=== PATIENT | male | born 1970 | race Caucasian/White ===

== ENCOUNTER 2021-01-29 16:18 | Emergency (ER) | payer OTHER, SELFPAY ==
--- NOTE | ~2021-01-29 | XR_ITS ---
EXAMINATION: XR SHOULDER, LEFT CLINICAL INFORMATION: Left shoulder pain status post injury COMPARISON: None TECHNIQUE: Three views of the left shoulder. FINDINGS: The bones and soft tissues are normal. No fracture. Glenohumeral and acromioclavicular alignment is anatomic with normal joint space. No abnormal soft tissue calcifications. XR/XR shoulder LT min 2V IMPRESSION: Normal left shoulder.
[2021-01-29 16:29] VITALS: BP 128/83; PULSE 86; RESP 18; TEMP 36.7; O2SAT 97; BMI 29.4
--- NOTE | 2021-01-29 16:59 | ED.EXTPRO ---
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 He immediately had pain in the left shoulder. No numbness or tingling. No weakness. Related Data Allergies Allergy/AdvReac Type Severity Reaction Status Date / Time egg [EGGS] Allergy Unknown SNEEZING Verified 01/29/21 17:26 N.K.D.A. Allergy Unknown Unknown Verified 01/29/21 17:26 Review of Systems Review of Systems: Yes all other systems are reviewed and are negative Constitutional: Constitutional: Reports no additional constitutional complaints, Denies body ache(s), Denies chills, Denies fever(s), Denies headache(s) and Denies weakness Eyes: Eyes: Reports no additional eye complaints and Denies change in vision ENT: Reports system reviewed and no additional complaints, except as documented, Denies dizziness, Denies headache(s), Denies nasal congestion, Denies nasal discharge and Denies neck pain Cardiovascular: Cardiovascular: Reports no additional cardiovascular complaints, Denies chest pain, Denies leg edema and Denies dyspnea Respiratory: Respiratory: Reports no additional respiratory complaints, Denies cough and Denies dyspnea Gastrointestinal: Gastrointestinal: Reports no additional gastrointestinal complaints, Denies abdominal pain, Denies diarrhea, Denies nausea and Denies vomiting Genitourinary: Genitourinary: Denies urinary incontinence Musculoskeletal: Musculoskeletal: Reports no additional musculoskeletal complaints, Denies back pain, Reports arthralgias, Denies joint swelling, Reports limited range of motion, Denies neck pain, Denies numbness and Denies tingling Integumentary/Breasts: Skin/Breast: Reports system reviewed and no additional complaints, except as docu and Denies rash Neurologic: Reports system reviewed and no additional complaints, except as documented, Denies Abnormal speech present, Denies dizziness, Denies headache(s), Denies numbness, Denies tingling and Denies weakness PMF Past Medical History Attestation statement: The following information was validated with the patient. Source: old records reviewed and nursing notes reviewed Medical History No known health problems Social History Social History Advance Directives: Yes Advance Directives Information Provided: No Advance Directives on File: No Physical Exam Vital Signs: Vital Signs: Last Vital Signs Temp 98.0 F 01/29/21 16:29 Pulse 86 01/29/21 16:29 Resp 18 01/29/21 16:29 BP 128/83 01/29/21 16:29 Pulse Ox 97 01/29/21 16:29 Body Mass Index 29.4 Const: General: cooperative, healthy appearing, comfortable and no acute distress Orientation/consciousness: patient oriented x3 Limitations: no limitations HENMT: Head: Yes normal to inspection Ears: hearing grossly normal bilaterally General nose exam: Normal external nose present Face and sinus: Yes normal facial exam Mouth: Normal oral and palatal mucosa present Throat: Yes posterior oropharynx normal Eyes: General: appearance normal, both eyes and all related structures Pupils: Equal, round and reactive pupils present Neck: Neck: Yes normal visual inspection Chest: Chest palpation & inspection: normal inspection of the chest Resp: Effort & Inspection: normal respiratory effort Auscultation: clear to auscultation bilaterally Cardio: Rate: regular rate Rhythm: regular rhythm Peripheral pulses: Peripheral pulses 2+ throughout GI: Inspection: Yes normal to inspection Palpation (GI): Soft to palpation and nontender Auscultation: normal bowel sounds Back/Spine/Pelvis: Thoracic/Lumbar Spine: thoracic and lumbar spine normal to inspection Skin: General skin exam: no rashes or lesions noted Neuro: General: patient oriented x3, no focal motor deficits and normal sensation to monofilament Cranial nerves: Yes Equal, round and reactive pupils present Cognition (Neuro): normal cognition Speech: No Abnormal speech present Gait exam (Neuro): Normal gait present Motor exam (neuro): 5/5 motor strength present throughout Extrem: Other: Tenderness over the anterior left shoulder at the AC joint. There is also tenderness over the posterior lower left shoulder. Pain is worsened with abduction. No paresthesias. Neurovascular intact distally. General: Yes normal to inspection Course Course Course Narrative: 50-year-old male here with left shoulder pain after hyperextending it at work. Will need x-rays. 1744-x-ray show no acute finding. Based on clinical exam concern for AC joint separation versus rotator cuff strain. Recommended supportive care at home with ice, elevation and anti-inflammatory medicines. Will refer to work connection for repeat evaluation this week prior to return to work. Reviewed worrisome signs and symptoms and when to return to the emergency department. Comfortable discharge home. MDM - Extremity (Nontraumatic) Medical Records Attestation: I reviewed the patient's medical records. Lab Data Attestation: I reviewed the patient's lab results. Imaging Data left shoulder xray: Attestation: I personally reviewed and interpreted this imaging study as follows: Radiologist's impression: EXAMINATION: XR SHOULDER, LEFT CLINICAL INFORMATION: Left shoulder pain status post injury COMPARISON: None TECHNIQUE: Three views of the left shoulder. FINDINGS: The bones and soft tissues are normal. No fracture. Glenohumeral and acromioclavicular alignment is anatomic with normal joint space. No abnormal soft tissue calcifications. XR/XR shoulder LT min 2V IMPRESSION: Normal left shoulder. Discharge Plan Discharge Clinical Impression: Left shoulder strain Qualifiers: Encounter type: initial encounter Qualified Code(s): S46.912A - Strain of unspecified muscle, fascia and tendon at shoulder and upper arm level, left arm, initial encounter Patient Disposition: Home, Self-Care Instructions: Rotator Cuff Injury (ED), Rotator Cuff Injury Exercises (DC) Additional Instructions: Ice to the area Gentle stretching No heavy lifting Follow-up with work connection up for [id number] Stand Alone Forms: Work/School Release Interventions: ED Discharge Assessment Last Done: 01/29/21 17:34 Discharge Date/Time: 01/29/21 17:38
[2021-01-29] MEDS: Ketorolac Tromethamine 60 MG/2 ML VIAL IM (17:27)
== END 2021-01-29 17:38 | disposition home or self-care (01) ==
PROVIDERS: Emergency Provider Internal Medicine
DX: S46.912A Strain of unspecified muscle, fascia and tendon at shoulder and upper arm level, left arm, initial encounter (principal); X50.0XXA Overexertion from strenuous movement or load, initial encounter; Y93.89 Activity, other specified; Y92.29 Other specified public building as the place of occurrence of the external cause; Y99.0 Civilian activity done for income or pay
CPT/HCPCS: 73030; 96372; 99284; J1885

== ENCOUNTER → 2021-01-30 11:13 | Outpatient (BNVA) | payer OTHER, SELFPAY | PROVIDERS: Visit Provider Physician Assistant | DX: S49.92XA Unspecified injury of left shoulder and upper arm, initial encounter (principal); X50.0XXA Overexertion from strenuous movement or load, initial encounter | CPT/HCPCS: 99203 ==

== ENCOUNTER → 2021-02-09 13:51 | Outpatient (BNVA) | payer OTHER, SELFPAY | PROVIDERS: Visit Provider Physician Assistant Medical | DX: S49.92XD Unspecified injury of left shoulder and upper arm, subsequent encounter (principal); X58.XXXD Exposure to other specified factors, subsequent encounter | CPT/HCPCS: 99213 ==

== ENCOUNTER 2021-02-12 08:45 | Outpatient (REF) | payer OTHER, SELFPAY ==
--- NOTE | ~2021-02-12 | MR_ITS ---
EXAMINATION: MRI SHOULDER WITHOUT CONTRAST, LEFT CLINICAL INFORMATION: Shoulder pain. COMPARISON: None. TECHNIQUE: MRI of the shoulder without contrast is performed in a 1.5 Lizette high-field scanner. FINDINGS: CORACOACROMIAL ARCH: Mild acromioclavicular arthritis. No significant fluid in the subacromial-subdeltoid space. Undersurface of the acromion is concave. ROTATOR CUFF: Supraspinatus, infraspinatus, teres minor is intact. Mild subscapularis tendinosis. No focal tear. ROTATOR CUFF MUSCLES: No muscle atrophy or fatty infiltration. BICEPS TENDON: Intact. LABRUM/CAPSULE: No discrete labral tear is seen. Inferior capsule is intact. No fracture. No suspicious marrow signal changes. No effusion. GLENOHUMERAL JOINT/MARROW: No fracture. No suspicious marrow signal changes. No effusion. MR/MR shoulder LT wo con IMPRESSION: 1. Mild subscapularis tendinosis. No evidence of rotator cuff tear. 2. Mild acromioclavicular arthritis.
== END 2021-02-12 08:46 | disposition home or self-care (01) ==
LOC: HO.MRI 08:45
PROVIDERS: Visit Provider Internal Medicine
DX: M25.512 Pain in left shoulder (principal)
CPT/HCPCS: 73221

== ENCOUNTER → 2021-02-15 09:56 | Outpatient (BNVA) | payer OTHER, SELFPAY | PROVIDERS: Visit Provider Physician Assistant Medical | DX: S49.92XD Unspecified injury of left shoulder and upper arm, subsequent encounter (principal); X58.XXXD Exposure to other specified factors, subsequent encounter | CPT/HCPCS: 99213 ==

== ENCOUNTER → 2021-02-22 09:57 | Outpatient (BNVA) | payer OTHER, SELFPAY | PROVIDERS: Visit Provider Physician Assistant Medical | DX: S49.92XD Unspecified injury of left shoulder and upper arm, subsequent encounter (principal); X58.XXXD Exposure to other specified factors, subsequent encounter; M67.819 Other specified disorders of synovium and tendon, unspecified shoulder | CPT/HCPCS: 99213 ==

== ENCOUNTER 2021-03-08 09:00 | Outpatient (RCR) | payer OTHER, SELFPAY ==
--- NOTE | 2021-02-07 10:57 | MHC.PT.EP ---
[facility] [place] Office [place] Office [place] Office [address] [place] [address] [phone] F: [phone] F: [phone] F: [phone] F: [phone] Physical Therapy Plan of Care Date of Evaluation: Date of Surgery: Diagnosis: L shoulder injury Assessment: 50 y/o RHD male referred to PT from work connection with L shoulder injury. He injured shoulder 01/29/21 while taking off ~50# pack immediately feeling L UT/shoulder pain that radiates into elbow. He initially could not move his L arm without significant pain but with ibuprofen and rest (per patient), he has improved ROM. Currently he is not working and has difficulty with reaching overhead, grooming, reaching behind back and sleeping. Examination shows decreased L shoulder AROM, decreased strength of scapular stabilizers and L shoulder flexors/abductors, increased muscle tension of rhomboids/UT, and impaired postural awareness. S/s consistent with L shoulder impingement and ?strain. Recommend PT 2x/week for 6 weeks to address impairments, implement HEP, and optimize functional mobility. Frequency and Duration: The patient will be seen 2x/week for 6 weeks Short Term Goals: 3 weeks 1. I with HEP 2. Improve L shoulder active abduction to [address]er Goals: 6 weeks 1. I with HEP and self management of sx 2. Pt will demonstrate full L shoulder AROM without end-range pain to faciliate reaching overhead into cabinets 3. Pt will be able to lift 40# box from 6 box to waist level with pain < 3/10 Treatment Plan: Modalities to reduce pain, spasms and effusion. Manual therapy to restore motion and function. Therapeutic exercise to improve strength and flexibility. Neuromuscular re-education for posture and balance. Therapeutic activities to return to functional activities of daily living. Electronically signed by: Sepideh Shepherd PT Please sign and return to therapist. Thank you for your referral.
--- NOTE | 2021-04-03 16:01 | MHC.PT.DC ---
[facility] [place] Office [place] Office [place] Office [address] [place] 140 [facility] [phone] F: [phone] F: [phone] F: [phone] F: [phone] Physical Therapy Discharge Report Diagnosis: L shoulder injury Date of Surgery: DOI 01/29/21 Date of Evaluation: 02/07/21 Date of Discharge: 04/03/21 Treatments to Date: 9 Cancellations to Date: 0 No Shows to Date: 0 Discharge Status: Improved Function Independent with HEP Discharge Summary: Pt I with HEP and released to work full duty. Demonstrates proper lifting mechanics and d/c to I HEP Electronically signed by: Sepideh Shepherd PT Please sign and return to therapist. Thank you for your referral.
== END 2021-04-03 16:01 | disposition home or self-care (01) ==
LOC: HO.PT 09:00
PROVIDERS: Visit Provider Physician Assistant
DX: S49.92XD Unspecified injury of left shoulder and upper arm, subsequent encounter (principal)
CPT/HCPCS: 97014; 97110; 97140; 97161; 97530

== ENCOUNTER → 2021-03-09 09:01 | Outpatient (BNVA) | payer OTHER, SELFPAY | PROVIDERS: Visit Provider Physician Assistant Medical | DX: S49.92XD Unspecified injury of left shoulder and upper arm, subsequent encounter (principal); X58.XXXD Exposure to other specified factors, subsequent encounter; M67.812 Other specified disorders of synovium, left shoulder | CPT/HCPCS: 99213 ==

== ENCOUNTER 2022-03-01 10:34 | Outpatient (REF) | payer OTHER, SELFPAY ==
[2022-03-01 10:48] LABS: MANUAL DIFF FLAG NO
[2022-03-01 11:17] LABS: Basophils Percent Auto 0.5 % (0-2); Eosinophils Absolute Auto 0.4 X10*3/uL (0.0-0.4); Eosinophils Percent Auto 7.1 % (0-4); Hematocrit 49.6 % (42.0-52.0); Hemoglobin 16.1 g/dl (14.0-18.0); Imm Gran Abs Auto 0.02 X10*3/uL (0.00-0.03); Imm Gran Pct Auto 0.3 % (0.0-0.4); Lymphocytes Absolute Auto 1.8 X10*3/uL (1.2-4.9); Mean Corpuscular HGB Conc 32.5 g/dl (31.0-36.0); Mean Corpuscular Hemoglobin 30.1 pg (27.0-33.0); Mean Corpuscular Volume 92.9 fL (80.0-98.0); Mean Platelet Volume 9.3 fL (9.4-12.4); Monocytes Absolute Auto 0.7 X10*3/uL (0.1-1.2); Monocytes Percent Auto 11.4 % (2-11); Neutrophils Absolute Auto 3.2 x10*3/uL (2.0-8.3); Neutrophils Percent Auto 51.7 % (45-73); Platelet Count 200 X10*3/uL (160-400); Red Blood Count 5.34 X10*6/uL (4.60-5.80); White Blood Count 6.2 X10*3/uL (4.8-10.8)
[2022-03-01 11:46] LABS: Alanine Aminotransferase 38 U/L (0-40); Alkaline Phosphatase 59 U/L (39-117); Anion Gap 13 (12-20); Aspartate Amino Transferase 26 U/L (5-37); Bilirubin Total 0.6 mg/dL (0.0-1.0); Blood Urea Nitrogen 18 mg/dL (9-16); Carbon Dioxide 24 mmol/L (22-29); Chloride 106 mmol/L (96-108); Cholesterol 192 mg/dL; Estimated Glomerular Filt Rate > 60; Glucose Fasting 95 mg/dL (60-99); HDL Cholesterol 49 mg/dL; LDL Cholesterol Calculated 128 mg/dl; Potassium 4.7 mmol/L (3.3-5.1); Sodium 138 mmol/L (135-145); Total Protein 6.9 g/dL (6.5-8.0); Triglycerides 75 mg/dL
[2022-03-01 12:12] LABS: Prostate Specific Antigen 4.16 ng/mL (<0.05-4.0); TSH reflex Free T4 1.54 uIU/mL (0.32-4.0); Vitamin D 25-OH Total 21.1 ng/mL (>30)
[2022-03-01 12:18] LABS: Folate 8.4 ng/mL (> or = 4.0); Vitamin B12 199 pg/mL (200-900)
== END 2022-03-01 10:35 | disposition home or self-care (01) ==
LOC: HO.LAB 10:34
PROVIDERS: PCP Internal Medicine; Visit Provider Nurse Practitioner Family
DX: Z00.00 Encounter for general adult medical examination without abnormal findings (principal); Z12.5 Encounter for screening for malignant neoplasm of prostate; Z13.220 Encounter for screening for lipoid disorders; Z13.29 Encounter for screening for other suspected endocrine disorder
CPT/HCPCS: 36415; 80053; 80061; 82306; 82607; 82746; 84153; 84443; 85025

== ENCOUNTER 2022-04-17 08:06 | Outpatient (REF) | payer OTHER, SELFPAY ==
[2022-04-17 08:23] LABS: MANUAL DIFF FLAG NO
[2022-04-17 08:34] LABS: Basophils Percent Auto 0.3 % (0-2); Eosinophils Absolute Auto 0.4 X10*3/uL (0.0-0.4); Hematocrit 49.8 % (42.0-52.0); Hemoglobin 16.7 g/dl (14.0-18.0); Imm Gran Abs Auto 0.02 X10*3/uL (0.00-0.03); Imm Gran Pct Auto 0.3 % (0.0-0.4); Lymphocytes Absolute Auto 1.8 X10*3/uL (1.2-4.9); Mean Corpuscular HGB Conc 33.5 g/dl (31.0-36.0); Mean Corpuscular Hemoglobin 30.9 pg (27.0-33.0); Mean Corpuscular Volume 92.1 fL (80.0-98.0); Mean Platelet Volume 8.5 fL (9.4-12.4); Monocytes Absolute Auto 0.8 X10*3/uL (0.1-1.2); Neutrophils Absolute Auto 3.9 x10*3/uL (2.0-8.3); Neutrophils Percent Auto 56.4 % (45-73); Platelet Count 254 X10*3/uL (160-400); Red Blood Count 5.41 X10*6/uL (4.60-5.80); Red Cell Distribution Width 13.2 % (11.0-16.0); White Blood Count 6.8 X10*3/uL (4.8-10.8)
[2022-04-17 09:17] LABS: Prostate Specific Antigen 3.53 ng/mL (<0.05-4.0)
== END 2022-04-17 08:07 | disposition home or self-care (01) ==
LOC: HO.LAB 08:06
PROVIDERS: PCP Internal Medicine; Visit Provider Nurse Practitioner Family
DX: D72.10 Eosinophilia, unspecified (principal); R97.20 Elevated prostate specific antigen [PSA]; Z12.5 Encounter for screening for malignant neoplasm of prostate
CPT/HCPCS: 36415; 84153; 85025

== ENCOUNTER 2022-05-10 08:18 | Day surgery (SDC) | payer OTHER, SELFPAY ==
--- NOTE | 2022-05-08 15:10 | HO.ANESPROP2 ---
Documented by User: Heather Maya NP 05/08/22 15:11 HPI - Anesthesia Eval Consult details Narrative: 52yo M for Colonoscopy with Poss Polypectomy PMFSH Active Problems Active Problems: All Active Problems (Updated 05/06/22 @ 14:03 by Katarina Mayen RN) Back pain (Acute) Neck pain (Acute) Adult general medical exam (Acute) Screening for hypothyroidism (Acute) Screening for prostate cancer (Acute) Screening for hyperlipidemia (Acute) Screening for diabetes mellitus (Acute) Screening for colon cancer (Acute) Eosinophilia (Acute) Elevated PSA (Acute) Low vitamin B12 level (Acute) Low vitamin D level (Acute) Colon cancer screening (Acute) Past Medical History Medical History (Updated 05/06/22 @ 14:03 by Katarina Mayen RN) Colon cancer screening No known health problems Family History Family History Mother Cancer Kidney problem History of brain cancer Father Cancer Colon polyps Surgical History Surgical History (Updated 05/06/22 @ 14:03 by Katarina Mayen RN) H/O hemorrhoidectomy History of colonoscopy History of nasal surgery Social History Social History Housing: House Alcohol intake: current Alcohol intake frequency: a few times a week Patient Tobacco Use Status: Never used Tobacco Second Hand Smoke Exposure: Yes Use of substances other than those prescribed or required for medical reasons: No Are you DNR?: No Advance Directives: No Advance Directives Information Provided: Yes service: No Current occupational status: employed Cognitive needs: No Hearing needs: No Vision needs: Yes Meds Allergies Allergy/AdvReac Type Severity Reaction Status Date / Time egg [EGGS] Allergy Unknown SNEEZING Verified 05/06/22 13:53 Exam Exam Date and Time: May 08, 2022 1510 Pertinent Lab Results Pertinent Lab Results: Laboratory Tests 03/01/22 04/17/22 10:47 08:22 WBC 6.8 Hgb 16.7 Hct 49.8 Plt Count 254 D Sodium 138 Potassium 4.7 Chloride 106 Carbon Dioxide 24 BUN 18 H Creatinine 1.19 Documented by User: Godwin Mckinney MD 05/10/22 12:51 HPI - Anesthesia Eval Consult details Narrative: 52yo M for Colonoscopy with Poss Polypectomy GERD neck pain with radiation to b/l UE with tingling and numbness lowback pain with radiation to b/l LE with tingling and numbness PMFSH Past Medical History Medical History (Updated 05/06/22 @ 14:03 by Katarina Mayen, RN) Colon cancer screening No known health problems Family History Family History Mother Cancer Kidney problem History of brain cancer Father Cancer Colon polyps Family history of problems with anesthesia: No Surgical History Surgical History (Updated 05/06/22 @ 14:03 by Katarina Mayen RN) H/O hemorrhoidectomy History of colonoscopy History of nasal surgery History of Problems with Anesthesia: No Social History Social History Housing: House Alcohol intake: current Alcohol intake frequency: a few times a week Patient Tobacco Use Status: Never used Tobacco Second Hand Smoke Exposure: Yes Use of substances other than those prescribed or required for medical reasons: No Are you DNR?: No Advance Directives: No Advance Directives Information Provided: Yes service: No Current occupational status: employed Cognitive needs: No Hearing needs: No Vision needs: Yes Meds Allergies Allergy/AdvReac Type Severity Reaction Status Date / Time egg [EGGS] Allergy Unknown SNEEZING Verified 05/06/22 13:53 Exam Airway Mallampati Class: III TM Dist: >3cm Neck ROM: Full Loose/Missing/Broken Teeth: Yes (Fillings , crown ) Heart: S1,S2 Lungs: b/l breath sounds Assessment and Plan Assessment Anesthesia Assessment: Anesthesia Plan Discussed and Chart Reviewed Final Anesthetic Review Family History of Problems with Anesthesia: No History of Problems with Anesthesia: No NPO: Yes ASA Class: II Final Preanesthetic Review: Meds/Allgs Chart Reviewed, Consent Obtained/Reviewed and Anes Risks/Benef Reviewed Procedure Risk: Intermediate Anesthetic Plan Anesthetic Plan: MAC: Disposition: Standard PACU
[2022-05-10 08:56] VITALS: BP 125/76; PULSE 89; RESP 16; TEMP 36.5; O2SAT 95; BMI 30.1
--- NOTE | 2022-05-10 08:57 | MHC.SHP ---
Pre-Procedural Eval Section A Date of Service: 05/10/22 The patient is an INPATIENT: No Changes since office visit: No Cold of Flu in the past 2 weeks, No New Medical Problems, No Changes in Medication and No Patient answered all questions The History & Physical has been completed within 30 days and I have reviewed it.: Yes Section B Chief Complaint: screening Allergies: Allergies Allergy/AdvReac Type Severity Reaction Status Date / Time egg [EGGS] Allergy Unknown SNEEZING Verified 05/06/22 13:53 Plan I have reviewed the history and physical and performed a pertinent physical examination on my patient. No changes have occurred unless specified.
[2022-05-10] MEDS: Lactated Ringers 1,000 ML 100 ML IVCONT (09:05)
--- NOTE | 2022-05-10 09:55 | P.OP_ITS ---
Operative Note Operative Note Date of Service: 05/10/22 Narrative: Preop diagnosis: Family history of colon cancer Postop diagnosis: 1. Small polyp, about 5 mm, in the mid transverse colon removed via cold forceps 2. polyp, about 8 mm at level 80 cm, removed with hot snare 3. small polyp, about 3 mm, At level 20 removed with cold forceps 4. small polyp, about 3 mm, at level 15 cm, removed with cold forceps Procedure: Colonoscopy, with polypectomy using cold forceps x3, polypectomy using hot snare x1 surgeon: Alexis Garcia MD The patient is a 52-year-old male with a family history of colon cancer and therefore undergoes colonoscopies every 5 years. He understands the technique of colonoscopy as well as the risks, benefits, and alternatives He was brought to the operating room. He was placed in left lateral decubitus position under monitored anesthesia care. A full digital rectal exam was done. There were no palpable anal canal lesions nor induration. The tip of the Olymp us colonoscope was gently introduced through the anal orifice and advanced with insufflation all the cecum. The cecum was intubated. The cecum was identified by visualization of the ileocecal valve as well as the appendiceal orifice. The cecal mucosa was unremarkable. The scope was gradually withdrawn careful examination of the entire colonic mucosa being done with scope withdrawal. The patient had good bowel prep so it was unlikely that any lesion may have been missed Had the level of the mid transverse colon, there was note of a small polyp about 5 mm removed with multiple bites of cold forceps. At level 80 cm, a polyp about 8 mm in size was removed using hot snare. At level 20 cm, there was note of a small polyp about 3 mm removed using cold forceps. At level 15 cm, there was note of a small polyp about 3 mm in size removed with cold forceps as well. The rest of the rectum and the anal canal include this shelf were unremarkable. The scope was then withdrawn completely with desufflation. In view of the number polyps, I would probably recommend another colonoscopy within 1 year which would also depend on the path report.
[2022-05-10 10:01] VITALS: BP 109/65; PULSE 75; RESP 15; TEMP 36.1; O2SAT 97
[2022-05-10 10:16] VITALS: BP 116/74; PULSE 71; RESP 16; TEMP 36.1; O2SAT 96
[2022-05-10 10:31] VITALS: BP 115/76; PULSE 75; RESP 16; TEMP 36.1; O2SAT 96
[2022-05-10 10:46] VITALS: BP 116/82; PULSE 70; RESP 16; TEMP 36.1; O2SAT 97
== END 2022-05-10 11:35 | disposition home or self-care (01) ==
PROVIDERS: PCP Internal Medicine; Visit Provider Surgery
PROC: 0DBE8ZZ Excision of Large Intestine, Via Natural or Artificial Opening Endoscopic (ICD-10-PCS; CPT 45385; principal; 2022-05-10 09:30)
DX: Z12.11 Encounter for screening for malignant neoplasm of colon (principal); Z80.0 Family history of malignant neoplasm of digestive organs; D12.3 Benign neoplasm of transverse colon; D12.4 Benign neoplasm of descending colon; K63.5 Polyp of colon; Z79.899 Other long term (current) drug therapy
CPT/HCPCS: 45385; 45380; 88305

== ENCOUNTER 2023-04-02 13:25 | Outpatient (REF) | payer OTHER, SELFPAY | END 2023-04-02 13:26 | disposition home or self-care (01) | LOC: HO.US 13:25 | PROVIDERS: PCP Internal Medicine; Visit Provider Internal Medicine | DX: N50.811 Right testicular pain (principal); N50.812 Left testicular pain | CPT/HCPCS: 76870 ==

== ENCOUNTER 2023-06-06 08:11 | Outpatient (REF) | payer OTHER, SELFPAY ==
--- NOTE | ~2023-06-06 | FL_ITS ---
PROCEDURE: UPPER GI EVALUATION WITH ESOPHAGRAM CLINICAL INFORMATION: Dysphagia. COMPARISON: None available. TECHNIQUE: Air-contrast upper GI examination with gas crystals, thin barium, thick barium, half-inch diameter barium tablet, and barium-coated cracker. FINDINGS: There is normal elevation of the soft palate while saying candy. There is normal apposition of the focal cords while saying E. The patient swallowed thin and thick barium without difficulty. No nasopharyngeal reflux or tracheal aspiration was identified. No Zenker's diverticulum was seen. No cricopharyngeal hypertrophy. There is normal esophageal motility. There is noted to be a small sliding hiatal hernia as well as a Schatzki's ring. Patient was able to swallow half-inch diameter barium tablet without difficulty. No persistent esophageal stricture was identified. No mucosal abnormality was seen. The stomach demonstrates normal distensibility without abnormal mass or ulceration. There was no delay in gastric emptying. No duodenal ulcer was identified. There is a moderate-sized duodenal diverticulum off of the third portion of the duodenum. FL/FL upper GI w air w Ba Swallow IMPRESSION: Small sliding hiatal hernia with Schatzki's ring through which half-inch diameter barium tablet passed without difficulty. Moderate-sized duodenal diverticulum off of the third portion of the duodenum.
[2023-06-06 08:25] LABS: MANUAL DIFF FLAG NO
[2023-06-06 08:37] LABS: Basophils Percent Auto 0.4 % (0-2); Eosinophils Absolute Auto 0.3 X10*3/uL (0.0-0.4); Hematocrit 50.4 % (42.0-52.0); Hemoglobin 16.4 g/dl (14.0-18.0); Imm Gran Abs Auto 0.02 X10*3/uL (0.00-0.03); Imm Gran Pct Auto 0.3 % (0.0-0.4); Lymphocytes Percent Auto 29.8 % (20-40); Mean Corpuscular HGB Conc 32.5 g/dl (31.0-36.0); Mean Corpuscular Hemoglobin 30.5 pg (27.0-33.0); Mean Corpuscular Volume 93.9 fL (80.0-98.0); Mean Platelet Volume 8.7 fL (9.4-12.4); Monocytes Absolute Auto 0.9 X10*3/uL (0.1-1.2); Monocytes Percent Auto 12.9 % (2-11); Neutrophils Absolute Auto 3.5 x10*3/uL (2.0-8.3); Neutrophils Percent Auto 52.6 % (45-73); Platelet Count 210 X10*3/uL (160-400); Red Blood Count 5.37 X10*6/uL (4.60-5.80); Red Cell Distribution Width 13.3 % (11.0-16.0); White Blood Count 6.7 X10*3/uL (4.8-10.8)
[2023-06-06 10:03] LABS: Alanine Aminotransferase 38 U/L (0-40); Albumin Level 4.1 g/dL (3.5-5.0); Alkaline Phosphatase 60 U/L (39-117); Anion Gap 13 (12-20); Appearance Urine Clear; Aspartate Amino Transferase 23 U/L (5-37); Bilirubin Total 0.6 mg/dL (0.0-1.0); Blood Urea Nitrogen 19 mg/dL (9-16); Calcium 9.4 mg/dL (8.4-10.2); Carbon Dioxide 24 mmol/L (22-29); Chloride 109 mmol/L (96-108); Cholesterol 191 mg/dL (<200); Color Urine Yellow; Estimated Glomerular Filt Rate > 60; Glucose Random 108 mg/dL (60-115); Glucose Urine UA Negative (Negative); HDL Cholesterol 53 mg/dL (>40); LDL Cholesterol Calculated 121 mg/dL (<100); Leukocyte Esterase Urine Negative (Negative); Nitrite Urine Negative (Negative); PH 5.5 (5.0-9.0); Potassium 4.3 mmol/L (3.3-5.1); Sodium 142 mmol/L (135-145); Specific Gravity - Urine >= 1.030 (1.005-1.025); Triglycerides 89 mg/dL (<150); UMIC TRIGGER UA YES; Urine Blood Negative (Negative); Urine Ketones Negative (Negative); Urine Protein 30 (1+) mg/dL (Neg-Trace)
[2023-06-06 10:06] LABS: Bacteria Urine None Seen (None Seen); Hyaline Casts Urine 0-2 /LPF (0-2); RBC Urine 0-2 /HPF (0-2); Squamous Epithelial Cell Urine 0-2 /HPF (0-2)
[2023-06-06 10:19] LABS: Free T4 (Free Thyroxine) 0.74 ng/dL (0.71-1.85); Thyroid Stimulating Hormone 2.57 uIU/mL (0.32-4.0)
[2023-06-06 11:02] LABS: Folate 10.4 ng/mL (> or = 4.0); Prostate Specific Antigen Scr 5.52 ng/mL (<0.05-4.0); Vitamin B12 354 pg/mL (200-900)
== END 2023-06-06 08:12 | disposition home or self-care (01) ==
LOC: HO.XRAY 08:11
PROVIDERS: PCP Internal Medicine; Visit Provider Internal Medicine
DX: Z12.5 Encounter for screening for malignant neoplasm of prostate (principal); R13.10 Dysphagia, unspecified; E78.00 Pure hypercholesterolemia, unspecified; E53.8 Deficiency of other specified B group vitamins
CPT/HCPCS: 36415; 74246; 80053; 80061; 81001; 82607; 82746; 84153; 84439; 84443; 85025

== ENCOUNTER → 2023-06-06 08:30 | Outpatient (BNV) | payer OTHER, SELFPAY | PROVIDERS: PCP Internal Medicine; Visit Provider Radiology Diagnostic Radiology | DX: R13.10 Dysphagia, unspecified (principal) | CPT/HCPCS: 74246 ==

== ENCOUNTER 2023-06-11 07:22 | Outpatient (REF) | payer OTHER, SELFPAY | END 2023-06-11 07:23 | disposition home or self-care (01) | LOC: HO.LAB 07:22 | PROVIDERS: PCP Internal Medicine; Visit Provider Internal Medicine | DX: Z12.5 Encounter for screening for malignant neoplasm of prostate (principal); R97.20 Elevated prostate specific antigen [PSA] | CPT/HCPCS: 36415; 84153 ==

== ENCOUNTER 2023-06-30 09:23 | Outpatient (AMB) | payer OTHER, SELFPAY ==
--- NOTE | 2023-06-30 09:25 | A.OFFPC_ITS ---
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 For physical exam. Noted have some dysphagia and barium swallow :Small sliding hiatal hernia with Schatzki's ring through which half-inch diameter barium tablet passed without difficulty. Moderate-sized duodenal diverticulum off of the third portion of the duodenum. was requested had pain in both testicles and ultrasound was requested: Unremarkable testes. 4 mm left epididymal head cyst. Small right hydrocele with echoes. Bilateral scrotal calcifications. patient is here for follow-up. patient is up-to-date with colonoscopy [facility] Medical History (Updated 06/30/23 @ 09:39 by Claudia Fontana MD) Tubular adenoma of colon Elevated PSA Neck pain Back pain Surgical History History of nasal surgery History of colonoscopy H/O hemorrhoidectomy Family History Mother Cancer Kidney problem History of brain cancer Father Cancer Colon polyps Social History (Updated 03/10/23 @ 10:16 by Claudia Fontana MD) Housing: House Alcohol intake: current Alcohol intake frequency: a few times a week Patient Tobacco Use Status: Never used Tobacco Second Hand Smoke Exposure: Yes service: No Current occupational status: employed Cognitive needs: No Hearing needs: No Vision needs: Yes Questionnaire PHQ-9 Over the last 2 weeks, how often have you been bothered by any of the following problems? 1. Little interest or pleasure in doing things: not at all 2. Feeling down, depressed, or hopeless: not at all 3. Trouble falling or staying asleep, or sleeping too much: not at all 4. Feeling tired or having little energy: not at all 5. Poor appetite or overeating: not at all 6. Feeling bad about yourself - or that you are a failure or have let yourself or your family down: not at all 7. Trouble concentrating on things, such as reading the newspaper or watching television: not at all 8. Moving or speaking so slowly that other people could have noticed. Or the opposite - being so fidgety or restless that you have been moving around a lot more than usual: not at all 9. Thoughts that you would be better off or of hurting yourself in some way: not at all Total score: 0 Depression Screening Interpretation: Negative Source: Developed by Drs. Jose Alfredo Carrillo, Preethi Yeboah, Eren Klein and colleagues, with an educational trinity from [employer]. Thrive Questionnaire Date Thrive assessed: 03/10/23 AUDIT C Alcohol Use Questionnaire (AUDIT-C) 1. How often do you have a drink containing alcohol?: 2-3 times a week 2. How many drinks containing alcohol do you have on a typical day when you are drinking?: 1 or 2 3. How often do you have six or more drinks on one occasion?: Never Total Score: 3 Score Reviewed/Action Taken: Yes ALONDRA-7 AMB Questionnaire ALONDRA-7 Date ALONDRA - 7 assessed: 03/10/23 Source: Developed by Drs. Jose Alfredo Carrillo, Preethi Yeboah, Eren Klein and colleagues, with an educational trinity from [employer]. Physical exam (Primary Care) Vital Signs: Last Vital Signs Pulse 84 06/30/23 09:26 BP 110/78 06/30/23 09:26 Pulse Ox 99 06/30/23 09:26 Oxygen Delivery Method Room Air 06/30/23 09:26 BMI result Body Mass Index 31.3 Tobacco/Smoking Status: Tobacco use Status Tobacco use date assessed 06/30/23 06/30/23 09:27 Patient Tobacco Use Status Never used Tobacco 06/30/23 09:27 PHQ-9: PHQ-9 Score PHQ-9: Total score 0 06/30/23 09:35 Depression Screening Interpretation: Negative Thrive Assessment: Date of Thrive Assessment Date Thrive assessed 03/10/23 06/30/23 09:27 Const General: alert; No acute distress Eyes Conjunctivae: conjunctivae normal Resp Auscultation: clear to auscultation bilaterally Cardio Rate: regular rate Rhythm: regular rhythm GI Inspection: Yes normal to inspection Extrem General: Yes normal to inspection and No edema Assessment and Plan Assessment & Plan (1) Schatzki's ring: Comment: May 2023Small sliding hiatal hernia with Schatzki's ring through which half-inch diameter barium tablet passed without difficulty. Moderate-sized duodenal diverticulum off of the third portion of the duodenum. Code(s): K22.2 - Esophageal obstruction (2) Pain in both testicles: Comment: March 2023 Ultrasound done Unremarkable testes. 4 mm left epididymal head cyst. Small right hydrocele with echoes. Bilateral scrotal calcifications. Code(s): N50.811 - Right testicular pain; N50.812 - Left testicular pain (3) GERD (gastroesophageal reflux disease): Code(s): K21.9 - Gastro-esophageal reflux disease without esophagitis Plan: Avoid the foods that causes that usually spicy foods, tomato products, juices, coffee, soda and foods that your sensitive to. After eating do not lie down, allow 3-4 hours before in lie down. And keep the head of bed above 30 degrees to avoid the acid from going up. (4) Obesity (BMI 30.0-34.9): Code(s): E66.9 - Obesity, unspecified Plan: Diet and exercise (5) Impaired fasting blood sugar: Code(s): R73.01 - Impaired fasting glucose (6) Tubular adenoma of colon: Comment: May 2022 Code(s): D12.6 - Benign neoplasm of colon, unspecified Plan: planned colon test this year Coding Level of Care Code Est Pt Level 4 (81788) Diagnoses Schatzki's ring K22.2 Pain in both testicles N50.811; N50.812 GERD (gastroesophageal reflux disease) K21.9 Obesity (BMI 30.0-34.9) E66.9 Impaired fasting blood sugar R73.01 Tubular adenoma of colon D12.6
[2023-06-30 09:26] VITALS: BP 110/78; PULSE 84; O2SAT 99; BMI 31.3
== END 2023-06-30 13:11 | disposition home or self-care (01) ==
PROVIDERS: PCP Internal Medicine; Visit Provider Internal Medicine
DX: K22.2 Esophageal obstruction (principal); N50.811 Right testicular pain; N50.812 Left testicular pain; K21.9 Gastro-esophageal reflux disease without esophagitis; R73.01 Impaired fasting glucose; D12.6 Benign neoplasm of colon, unspecified
CPT/HCPCS: 99214

== ENCOUNTER 2023-11-26 14:00 | Outpatient (AMB) | payer OTHER, SELFPAY ==
--- NOTE | 2023-11-26 14:02 | A.OFFVIS_ITS ---
Intake Vital Signs 11/26/23 14:08 Height 5 ft 10 in Weight 213 lb BMI 30.6 BP 124/67 Blood Pressure Location Rt brachial Position Sitting Pulse 77 Intake Visit Reasons: 1 year recall colonoscopy screening Intake Note: This patient presents for a one year recall colonoscopy screening. Patient c/o; reports no complaints at this time. 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 He has a family history of colon cancer. His father had colon cancer in his 50s. He undergoes colonoscopy every 5 years. Last colonoscopy was in 2021. At that time, I removed multiple adenomatous polyps so I would recommended repeating the colonoscopy in 1 year He currently denies any significant GI complaints. He denies any changes in his bowel habits. He denies rectal bleeding. He says he feels well overall. [facility] Medical History Tubular adenoma of colon Elevated PSA Neck pain Back pain Surgical History History of nasal surgery History of colonoscopy H/O hemorrhoidectomy Family History Mother Cancer Kidney problem History of brain cancer Father Cancer Colon polyps Social History Housing: House Alcohol intake: current Alcohol intake frequency: a few times a week Patient Tobacco Use Status: Never used Tobacco Second Hand Smoke Exposure: Yes service: No Current occupational status: employed Cognitive needs: No Hearing needs: No Vision needs: Yes Review of Systems Const Denies chills and Denies fever(s) Card Denies chest pain, Denies dyspnea and Denies dyspnea on exertion Resp Denies cough, Denies dyspnea and Denies dyspnea on exertion GI Denies hematochezia and Denies change in bowel habits Denies hematuria and Denies difficulty urinating Musc Denies back pain and Denies limited range of motion Neuro Denies focal weakness and Denies convulsions Psych Denies depression and Denies mood swings Physical Exam Vital Signs: Last Vital Signs Pulse 77 11/26/23 14:08 BP 124/67 11/26/23 14:08 BMI result Body Mass Index 30.6 Const General: comfortable and no acute distress Orientation/consciousness: patient oriented x3 Neck Neck: Yes no lymphadenopathy Resp Auscultation: clear to auscultation bilaterally Cardio Rhythm: regular rhythm GI Palpation (GI): Soft to palpation, nontender and no guarding Neuro General: patient oriented x3 Assessment & Plan Assessment & Plan (1) History of colon polyps: Code(s): Z86.010 - Personal history of colonic polyps Plan: He had multiple tubular adenomas in 2021. He also has a family history of colon cancer I have recommended for him to undergo a colonoscopy with a short interval. He is planning to have it done this year. I explained the technique of colonoscopy. I reviewed the risks including but not limited to bleeding and perforation, as well as the benefits and alternatives. Understands and wants to proceed. Coding Level of Care Code New Pt Level 3 (76706) Diagnoses History of colon polyps Z86.010
[2023-11-26 14:08] VITALS: BP 124/67; PULSE 77; BMI 30.6
== END 2023-11-26 14:26 | disposition home or self-care (01) ==
PROVIDERS: PCP Internal Medicine; Visit Provider Surgery
DX: Z01.818 Encounter for other preprocedural examination (principal); Z86.010 Personal history of colon polyps
CPT/HCPCS: 99213

== ENCOUNTER → 2023-11-26 14:00 | Outpatient (BNVA) | payer OTHER, SELFPAY | PROVIDERS: PCP Internal Medicine; Visit Provider Surgery ==

== ENCOUNTER 2024-01-09 06:23 | Day surgery (SDC) | payer OTHER, SELFPAY ==
[2024-01-07 10:30] VITALS: BMI 30.6
--- NOTE | 2024-01-07 12:08 | HO.ANESPROP2 ---
Documented by User: Heather Maya NP 01/07/24 12:08 HPI - Anesthesia Eval Consult details Narrative: 53yo M For Colonoscopy possible Polypectomy PMFSH Active Problems Active Problems: All Active Problems (Updated 06/30/23 @ 09:39 by Claudia Fontana MD) Impaired fasting blood sugar (Acute) Schatzki's ring (Acute) Multiple pigmented nevi (Acute) Pain in both testicles (Acute) GERD (gastroesophageal reflux disease) (Acute) Dysphagia (Acute) Obesity (BMI 30.0-34.9) (Acute) Annual physical exam (Acute) Neck pain (Acute) Low vitamin D level (Acute) Low vitamin B12 level (Acute) Eosinophilia (Acute) Adult general medical exam (Acute) Elevated PSA (Acute) Tubular adenoma of colon (Acute) Past Medical History Medical History Tubular adenoma of colon Elevated PSA Neck pain Back pain Family History Family History Mother Cancer Kidney problem History of brain cancer Father Cancer Colon polyps Family history of problems with anesthesia: No Surgical History Surgical History History of nasal surgery History of colonoscopy H/O hemorrhoidectomy History of Problems with Anesthesia: No Social History Social History Housing: House Alcohol intake: current Alcohol intake frequency: a few times a week Patient Tobacco Use Status: Never used Tobacco Second Hand Smoke Exposure: Yes Use of substances other than those prescribed or required for medical reasons: No Are you DNR?: No Advance Directives: No Advance Directives Information Provided: Yes service: No Current occupational status: employed Cognitive needs: No Hearing needs: No Vision needs: Yes Meds Allergies Allergy/AdvReac Type Severity Reaction Status Date / Time egg [EGGS] Allergy Unknown Sneezing Verified 01/09/24 06:52 Home Medications ?Medication ?Instructions ?Recorded ?Confirmed ?Last Taken ?Type sildenafil 100 mg tablet 100 mg PO DAILY PRN Erectile 09/02/22 01/07/24 Unknown History Dysfunction Exam Height,Weight and Vital Signs: Height 5 ft 10 in Weight 96.615 kg Assessment and Plan Assessment Anesthesia Assessment: Chart Reviewed Final Anesthetic Review Family History of Problems with Anesthesia: No History of Problems with Anesthesia: No Documented by User: Marko Foster MD 01/09/24 07:30 PMFSH Past Medical History Medical History Tubular adenoma of colon Elevated PSA Neck pain Back pain Family History Family History Mother Cancer Kidney problem History of brain cancer Father Cancer Colon polyps Surgical History Surgical History History of nasal surgery History of colonoscopy H/O hemorrhoidectomy Social History Social History Housing: House Alcohol intake: current Alcohol intake frequency: a few times a week Patient Tobacco Use Status: Never used Tobacco Second Hand Smoke Exposure: Yes Use of substances other than those prescribed or required for medical reasons: No Are you DNR?: No Advance Directives: No Advance Directives Information Provided: Yes service: No Current occupational status: employed Cognitive needs: No Hearing needs: No Vision needs: Yes Meds Allergies Allergy/AdvReac Type Severity Reaction Status Date / Time egg [EGGS] Allergy Unknown Sneezing Verified 01/09/24 06:52 Home Medications ?Medication ?Instructions ?Recorded ?Confirmed ?Last Taken ?Type sildenafil 100 mg tablet 100 mg PO DAILY PRN Erectile 09/02/22 01/07/24 Unknown History Dysfunction Exam Airway Mallampati Class: II TM Dist: >3cm Neck ROM: Full Loose/Missing/Broken Teeth: No Heart: ok Lungs: ok Assessment and Plan Final Anesthetic Review NPO: Yes ASA Class: II Final Preanesthetic Review: No Changes in Pt Med Stat, Meds/Allgs Chart Reviewed, Consent Obtained/Reviewed and Anes Risks/Benef Reviewed Patient Risk: Low Procedure Risk: Low Anesthetic Plan Anesthetic Plan: MAC: and Agree w/ Assess. and Plan Disposition: Standard PACU
[2024-01-09 06:52] VITALS: BP 118/78; PULSE 70; RESP 16; TEMP 36.6; O2SAT 97; BMI 30.5
[2024-01-09] MEDS: Lactated Ringers 1,000 ML 100 ML IVCONT (07:09)
--- NOTE | 2024-01-09 07:27 | MHC.SHP ---
Pre-Procedural Eval Section A - 24 Hr Update-Section A only Date of Service: 01/09/24 Section B - Complete if H&P > 30 days Chief Complaint: Personal history of colonic polyps Details of Present Illness: has hx of multiple tubular adenomas, last colonoscopy was in 2021 Relevant Family History (Specify if Yes): No Relevant Social History: None Present Medications: see Short Stay Collaborative assessment Medical History: Significant History (GERD, elevated PSA) History of Previous Operations: Relevant previous surgery/procedure and date(s) Allergies: Allergies Allergy/AdvReac Type Severity Reaction Status Date / Time egg [EGGS] Allergy Unknown Sneezing Verified 01/09/24 06:52 Review of Systems Sugical H&P ROS: Negative: Constitution, Cardiovascular, Respiratory, Neurological, Psychiatric, Hem-Onc, Allergic/Immunologic, Gastrointestinal, Genitourinary, Musculoskeletal, Integumentary, Endocrine and Eyes/Ears/Nose/Throat Exam Surgical H&P Exam: Normal: HEENT, Normal: Heart, Normal: Lungs, Normal: Extremities, Normal: Abdomen, Normal: Skin and Normal: Neurological Plan Diagnosis/Plan: Unchanged I have reviewed the history and physical and performed a pertinent physical examination on my patient. No changes have occurred unless specified. Time Spent With Patient Time: Total time managing care of this patient today ____ minutes.
--- NOTE | 2024-01-09 08:02 | W.PM.OPN ---
Operative Note Operative Note Date of Service: 01/09/24 Narrative: Preop diagnosis: History of tubular adenomas Postop diagnosis: 1. Two polyps in the cecum, 1 about 2 mm and the other about 5 mm, both removed with multiple bites of the cold forceps 2. Polyp at level 50 cm, about 7 mm in size, removed with hot snare 3. Internal and external hemorrhoids Procedure: Colonoscopy with polypectomy using cold forceps x2 and polypectomy using hot snare x1 Surgeon: Alexis Garcia MD The patient is a 53-year-old male with history of multiple polyps. He understands the technique of the planned procedure as well as the risks, benefits, and alternatives. The patient was brought to the operating room and placed in left lateral decubitus position under monitored anesthesia care. A surgical time-out was done. A full digital rectal exam was done and this did not reveal any significant anal lesions. The tip of the Olympus colonoscope was gently introduced through the anal orifice advanced with insufflation all the way to the cecum. The cecum was intubated. The cecum was identified by visualization of the ileocecal valve as well as the appendiceal orifice. There were 2 small polyps in the cecum, 1 about 2 mm in size and the other about 5 mm in size adjacent to each other. These were both removed using multiple bites of the cold forceps. The scope was gradually withdrawn with careful examination of the entire colonic mucosa being done with scope withdrawal. The patient had adequate bowel prep so it was unlikely that any lesion may have been missed. At level 50 cm was note of another polyp probably about 6-7 mm in size. This was removed using hot snare. The rectum was reached and there were no lesions seen. The anal canal was unremarkable. The scope was then withdrawn completely with desufflation The patient tolerated procedure well. There were no immediate complications. Depending on his path report, I may recommend another colonoscopy in the next 3 years.
[2024-01-09 08:08] VITALS: BP 102/70; PULSE 79; RESP 18; TEMP 36.2; O2SAT 92
[2024-01-09 08:23] VITALS: BP 102/75; PULSE 74; RESP 18; TEMP 36.3; O2SAT 95
[2024-01-09 08:38] VITALS: BP 112/78; PULSE 74; RESP 18; TEMP 36.4; O2SAT 96
== END 2024-01-09 09:26 | disposition home or self-care (01) ==
PROVIDERS: PCP Internal Medicine; Visit Provider Surgery
PROC: 0DBE8ZZ Excision of Large Intestine, Via Natural or Artificial Opening Endoscopic (ICD-10-PCS; CPT 45385; principal; 2024-01-09 07:30)
DX: Z12.11 Encounter for screening for malignant neoplasm of colon (principal); Z86.010 Personal history of colon polyps; Z79.899 Other long term (current) drug therapy; D12.0 Benign neoplasm of cecum; D12.5 Benign neoplasm of sigmoid colon; K64.8 Other hemorrhoids; K64.4 Residual hemorrhoidal skin tags; R97.20 Elevated prostate specific antigen [PSA]; Z80.0 Family history of malignant neoplasm of digestive organs; Z98.890 Other specified postprocedural states
CPT/HCPCS: 45385; 45380; 88305; J2704

== ENCOUNTER → 2024-01-09 06:23 | Outpatient (BNV) | payer OTHER, SELFPAY | PROVIDERS: PCP Internal Medicine; Visit Provider Surgery | DX: Z12.11 Encounter for screening for malignant neoplasm of colon (principal); K63.5 Polyp of colon; K64.8 Other hemorrhoids; Z86.010 Personal history of colon polyps | CPT/HCPCS: 45380; 45385 ==

== ENCOUNTER 2024-01-21 08:56 | Outpatient (AMB) | payer OTHER, SELFPAY ==
--- NOTE | 2024-01-21 08:57 | MHC.OFFVIS ---
Intake Vital Signs 01/21/24 09:04 Height 5 ft 10 in Weight 212 lb 6.399 oz BMI 30.5 Intake Visit Reasons: S/p colonoscopy Intake Note: This patient presents for a post-op assessment status post colonoscopy. Pt c/o; reports no complaints. Colonoscopy:01/09/2024 *3 year recall colonoscopy License And Permit Specialist Required: No Accompanied by: Self / Same As Patient Allergies egg [EGGS] Allergy (Unknown, Verified 01/21/24 08:57) Sneezing HPI S/p colonoscopy HPI Details He underwent colonoscopy last 01/09/2024 and is here for follow-up visit. He tolerated procedure well and currently denies significant complaints. [facility] Medical History (Updated 01/21/24 @ 10:02 by Alexis Garcia MD) Adenoma of colon Tubular adenoma of colon Elevated PSA Neck pain Back pain Surgical History History of colonoscopy (~01/09/24) History of nasal surgery History of colonoscopy H/O hemorrhoidectomy Family History Mother Cancer Kidney problem History of brain cancer Father Cancer Colon polyps Social History Housing: House Alcohol intake: current Alcohol intake frequency: a few times a week Patient Tobacco Use Status: Never used Tobacco Second Hand Smoke Exposure: Yes service: No Current occupational status: employed Cognitive needs: No Hearing needs: No Vision needs: Yes Review of Systems Const Denies chills and Denies fever(s) Card Denies chest pain, Denies dyspnea and Denies dyspnea on exertion Resp Denies cough, Denies dyspnea and Denies dyspnea on exertion GI Denies hematochezia and Denies change in bowel habits Denies hematuria and Denies difficulty urinating Musc Denies back pain and Denies limited range of motion Neuro Denies focal weakness and Denies convulsions Psych Denies depression and Denies mood swings Physical Exam Vital Signs: BMI result Body Mass Index 30.5 Const General: comfortable and no acute distress Resp Effort & Inspection: normal respiratory effort GI Palpation (GI): Soft to palpation, not firm and nontender Assessment & Plan Assessment & Plan (1) Adenoma of colon: Code(s): D12.6 - Benign neoplasm of colon, unspecified Plan: Status post colonoscopy last January 08. I removed 3 small polyps. All of these were tubular adenomas without high-grade dysplasia I explained to him that I would recommend another colonoscopy within 3 years because of his adenomas. He can otherwise follow up on a p.r.n. basis. Coding Level of Care Code Est Pt Level 2 (15380) Diagnoses Adenoma of colon D12.6
[2024-01-21 09:04] VITALS: BMI 30.5
== END 2024-01-21 10:05 | disposition home or self-care (01) ==
PROVIDERS: PCP Internal Medicine; Visit Provider Surgery
DX: D12.6 Benign neoplasm of colon, unspecified (principal)
CPT/HCPCS: 99212

== ENCOUNTER → 2024-01-21 08:56 | Outpatient (BNVA) | payer OTHER, SELFPAY | PROVIDERS: PCP Internal Medicine; Visit Provider Surgery | DX: Z86.010 Personal history of colon polyps (principal) ==

== ENCOUNTER 2024-03-15 07:07 | Outpatient (REF) | payer OTHER, SELFPAY ==
[2024-03-15 07:20] LABS: MANUAL DIFF FLAG NO
[2024-03-15 07:50] LABS: Basophils Percent Auto 0.5 % (0-2); Eosinophils Absolute Auto 0.4 X10*3/uL (0.0-0.4); Eosinophils Percent Auto 5.3 % (0-4); Hematocrit 48.5 % (42.0-52.0); Hemoglobin 16.4 g/dl (14.0-18.0); Imm Gran Abs Auto 0.04 X10*3/uL (0.00-0.03); Imm Gran Pct Auto 0.5 % (0.0-0.4); Lymphocytes Absolute Auto 2.5 X10*3/uL (1.2-4.9); Lymphocytes Percent Auto 33.4 % (20-40); Mean Corpuscular HGB Conc 33.8 g/dl (31.0-36.0); Mean Corpuscular Hemoglobin 30.9 pg (27.0-33.0); Mean Corpuscular Volume 91.5 fL (80.0-98.0); Mean Platelet Volume 8.7 fL (9.4-12.4); Monocytes Absolute Auto 0.8 X10*3/uL (0.1-1.2); Monocytes Percent Auto 10.2 % (2-11); Neutrophils Absolute Auto 3.8 x10*3/uL (2.0-8.3); Neutrophils Percent Auto 50.1 % (45-73); Platelet Count 248 X10*3/uL (160-400); Red Cell Distribution Width 13.4 % (11.0-16.0); White Blood Count 7.6 X10*3/uL (4.8-10.8)
[2024-03-15 07:56] LABS: Estimated Average Glucose 120 mg/dL; Hemoglobin A1c % 5.8 % (<6.0)
[2024-03-15 08:41] LABS: Alanine Aminotransferase 24 U/L (0-40); Albumin Level 4.1 g/dL (3.5-5.0); Alkaline Phosphatase 65 U/L (39-117); Anion Gap 15 (12-20); Aspartate Amino Transferase 20 U/L (5-37); Bilirubin Total 0.6 mg/dL (0.0-1.0); Blood Urea Nitrogen 19 mg/dL (9-16); Calcium 9.8 mg/dL (8.4-10.2); Carbon Dioxide 23 mmol/L (22-29); Chloride 106 mmol/L (96-108); Cholesterol 191 mg/dL (<200); Estimated Glomerular Filt Rate > 60; Glucose Random 110 mg/dL (60-115); HDL Cholesterol 43 mg/dL (>40); LDL Cholesterol Calculated 126 mg/dL (<100); Potassium 3.9 mmol/L (3.3-5.1); Sodium 140 mmol/L (135-145); Total Protein 7.2 g/dL (6.5-8.0); Triglycerides 113 mg/dL (<150)
[2024-03-15 08:44] LABS: Thyroid Stimulating Hormone 1.83 uIU/mL (0.32-4.0)
[2024-03-15 08:55] LABS: Folate 6.8 ng/mL (> or = 4.0); Prostate Specific Antigen Scr 5.69 ng/mL (<0.05-4.0); Vitamin B12 251 pg/mL (200-900)
== END 2024-03-15 07:08 | disposition home or self-care (01) ==
LOC: HO.LAB 07:07
PROVIDERS: PCP Internal Medicine; Visit Provider Internal Medicine
DX: R73.01 Impaired fasting glucose (principal); K21.9 Gastro-esophageal reflux disease without esophagitis; E78.00 Pure hypercholesterolemia, unspecified; Z12.5 Encounter for screening for malignant neoplasm of prostate
CPT/HCPCS: 36415; 80053; 80061; 82607; 82746; 83036; 84153; 84439; 84443; 85025

== ENCOUNTER 2024-03-17 09:00 | Outpatient (AMB) | payer OTHER, SELFPAY ==
[2024-03-17 09:10] VITALS: BP 122/76; PULSE 73; O2SAT 97
--- NOTE | 2024-03-17 09:10 | A.OFFPC_ITS ---
Vital Signs 03/17/24 09:10 Height 5 ft 10 in Weight 209 lb BMI 30.0 BP 122/76 Blood Pressure Location Lt brachial Position Sitting Pulse 73 Pulse Source Pulse Oximeter Pulse Oximetry (%) 97 Oxygen Delivery Method Room Air Intake Visit Reasons: pe Allergies egg [EGGS] Allergy (Unknown, Verified 03/17/24 09:10) Sneezing Medication List - Last Reconciled 03/17/24 by Claudia Fontana MD cyclobenzaprine 5 mg PO BEDTIME PRN esomeprazole magnesium (Nexium) 20 mg PO DAILY sildenafil 100 mg PO DAILY PRN Tobacco use date assessed: 03/17/24 Dental Screening Dental Screen Date: 03/17/24 Did you have a dental visit in the last 12 months?: Yes Did you have a dental problem in the last 6 months where you did not have access to dental care?: No Was dental information given to patient?: Patient has dentist HPI pe HPI Details 54-year-old obese male with a history of GERD impaired glucose tolerance and history of tubular adenoma coming in for physical exam last seen in 06/25/2023. Patient had colonoscopy in 01/24/2024 and advised repeat in 3 years had tubular adenoma [facility] Medical History (Updated 03/17/24 @ 09:53 by Claudia Fontana MD) Adenoma of colon Tubular adenoma of colon Elevated PSA Neck pain Back pain Surgical History History of colonoscopy (~01/09/24) History of nasal surgery History of colonoscopy H/O hemorrhoidectomy Family History Mother Cancer Kidney problem History of brain cancer Father Cancer Colon polyps Social History (Updated 03/17/24 @ 09:59 by Claudia Fontana MD) Housing: House Alcohol intake: current Alcohol intake frequency: a few times a week Comment: 4 out of 8 days- 4 drinks Patient Tobacco Use Status: Never used Tobacco Tobacco use type: Cigarette Years Smoked: edible e-Cigarette/Vaping Use: Never Used Second Hand Smoke Exposure: Yes service: No Current occupational status: employed Cognitive needs: No Hearing needs: No Vision needs: Yes Questionnaire PHQ-9 Over the last 2 weeks, how often have you been bothered by any of the following problems? 1. Little interest or pleasure in doing things: not at all 2. Feeling down, depressed, or hopeless: not at all 3. Trouble falling or staying asleep, or sleeping too much: not at all 4. Feeling tired or having little energy: not at all 5. Poor appetite or overeating: not at all 6. Feeling bad about yourself - or that you are a failure or have let yourself or your family down: not at all 7. Trouble concentrating on things, such as reading the newspaper or watching television: not at all 8. Moving or speaking so slowly that other people could have noticed. Or the opposite - being so fidgety or restless that you have been moving around a lot more than usual: not at all 9. Thoughts that you would be better off or of hurting yourself in some way: not at all Total score: 0 Depression Screening Interpretation: Negative Depression Screening Done: Yes Source: Developed by Drs. Jose Alfredo Carrillo, Preethi Yeboah, Eren Klein and colleagues, with an educational trinity from [employer]. Thrive Questionnaire Date Thrive assessed: 03/17/24 I am a: Patient What is your living situation today?: I have a steady place to live Within the past 12 months, did the food you bought not last and you didn't have the money to get more?: Never true Within the past 12 months, did you worry whether your food would run out before you got money to buy more?: Never true Do you have trouble paying for medicines?: No Do you have trouble getting transportation to medical appointments?: No Do you have trouble paying your heating and electricity bill?: No Do you have trouble taking care of your child, family member or friend?: No Do you have trouble with day-to-day activities such as bathing, preparing meals, shopping, managing finances, etc.?: No Are you currently unemployed and looking for a job?: No Are you interested in more education?: No Currently or been in a relationship where the following occur: no concerns reported THRIVE Score: 0 AUDIT C Alcohol Use Questionnaire (AUDIT-C) 1. How often do you have a drink containing alcohol?: 2-3 times a week 2. How many drinks containing alcohol do you have on a typical day when you are drinking?: 1 or 2 3. How often do you have six or more drinks on one occasion?: Never Total Score: 3 Score Reviewed/Action Taken: Yes ALONDRA-7 AMB Questionnaire ALONDRA-7 Date ALONDRA - 7 assessed: 03/17/24 Feeling nervous, anxious, or on edge: 0 = Not at all Not being able to stop or control worryin = Not at all Worrying too much about different things: 0 = Not at all Trouble relaxin = Not at all Being so restless that it is hard to sit still: 0 = Not at all Becoming easily annoyed or irritable: 0 = Not at all Feeling afraid as if something awful might happen: 0 = Not at all Total ALONDRA-7 score (0-4 normal; 5-9 mild; 10-14 moderate; 15-21 severe): 0 Source: Developed by Drs. Jose Alfredo Carrillo, Preethi Yeboah, Eren Klein and colleagues, with an educational trinity from [employer]. Review of Systems Const Denies poor appetite and Denies weakness Eyes Denies no additional complaints ENT Reports Normal hearing present, Denies dizziness, Denies nasal congestion, Denies tinnitus and Denies sore throat Card Denies chest pain, Denies syncope, Denies rapid heart rate and Denies dyspnea Resp Denies cough and Denies dyspnea GI Denies change in stool character, Reports constipation, Denies diarrhea, Denies nausea and Denies vomiting Denies dysuria and Denies urinary frequency Neuro Reports Normal hearing present, Denies confusion, Denies dizziness, Denies syncope and Denies weakness Psych Denies confusion Physical exam (Primary Care) Vital Signs: Last Vital Signs Pulse 73 03/17/24 09:10 BP 122/76 03/17/24 09:10 Pulse Ox 97 03/17/24 09:10 Oxygen Delivery Method Room Air 03/17/24 09:10 BMI result Body Mass Index 30.0 Tobacco/Smoking Status: Tobacco use Status Tobacco use date assessed 03/17/24 03/17/24 09:17 Patient Tobacco Use Status Never used Tobacco 03/17/24 09:17 Tobacco use type Cigarette 03/17/24 09:17 e-Cigarette/Vaping Use Never Used 03/17/24 09:17 PHQ-9: PHQ-9 Score PHQ-9: Total score 0 03/17/24 09:17 Depression Screening Interpretation: Negative Thrive Assessment: Date of Thrive Assessment Date Thrive assessed 03/17/24 03/17/24 09:17 Currently or been in a relationship where the following occur: no concerns reported Const General: No confusion Orientation/consciousness: No confusion HENMT Head: Yes normocephalic Ears: external ears normal and TM's normal bilaterally Face and sinus: Yes normal facial exam Mouth: moist mucous membranes Throat: Yes tonsils normal Eyes Conjunctivae: conjunctivae normal Pupils: Equal, round and reactive pupils present and Pupil accommodation reflex normal Direct Ophthalmoscopy: normal light reflex Neck Neck: No lymphadenopathy Thyroid: Thyroid normal Chest Chest palpation & inspection: normal inspection of the chest Resp Effort & Inspection: normal respiratory effort and no audible wheezes Auscultation: clear to auscultation bilaterally, no crackles, no wheezes and lung sounds not diminished Cardio Rate: regular rate Rhythm: regular rhythm Peripheral pulses: radial pulses present and dorsalis pedis present GI Other: colon test 01/2024 Palpation (GI): no masses Auscultation: normal bowel sounds and normoactive bowel sounds Rectal Exam - Male: Yes deferred Male General Exam: Yes normal external exam Skin General skin exam: no rashes or lesions noted Rashes: no rashes Neuro General: No confusion Cranial nerves: Yes Equal, round and reactive pupils present and Yes Normal hearing present Cognition (Neuro): normal cognition Gait exam (Neuro): Normal gait present Motor exam (neuro): 5/5 motor strength present throughout Deep tendon reflexes (DTR's): Right brachioradialis reflex intensity grade: 2+, Left brachioradialis reflex intensity grade: 2+, Right patellar reflex intensity grade: 2+ and Left patellar reflex intensity grade: 2+ Extrem General: No edema Assessment and Plan Assessment & Plan (1) Annual physical exam: Code(s): Z00.00 - Encounter for general adult medical examination without abnormal findings Plan: Patient is advised to eat healthy, keep well hydrated, keep active and have adequate sleep. (2) Impaired fasting blood sugar: Code(s): R73.01 - Impaired fasting glucose Plan: Decrease the amount of carbohydrate intake, pasta, bread, rice and potatoes are all sugar and that is aside from all the sweet stuff, remember that fruits are good but they are Sweet also. (3) GERD (gastroesophageal reflux disease): Code(s): K21.9 - Gastro-esophageal reflux disease without esophagitis Plan: Avoid the foods that causes that usually spicy foods, tomato products, juices, coffee, soda and foods that your sensitive to. After eating do not lie down, allow 3-4 hours before in lie down. And keep the head of bed above 30 degrees to avoid the acid from going up. (4) Obesity (BMI 30.0-34.9): Code(s): E66.9 - Obesity, unspecified Plan: Diet and exercise (5) Elevated PSA: Code(s): R97.20 - Elevated prostate specific antigen [PSA] Plan: Discussed about the elevated PSA- referral to urology done (6) Tubular adenoma of colon: Comment: May 202201/2024 Dr. Garcia Code(s): D12.6 - Benign neoplasm of colon, unspecified Plan: Patient was advised to have a repeat test in 3 years Orders: Referrals Urology Referral R97.20 - Elevated prostate specific antigen [PSA] Medications: Refilled cyclobenzaprine 5 mg PO BEDTIME PRN 20 tabs 1RF muscle spasm M54.2 - Cervicalgia Coding Level of Care Code Est Pt Prev Care 40-64y(19613) Diagnoses Annual physical exam Z00.00 Impaired fasting blood sugar R73.01 GERD (gastroesophageal reflux disease) K21.9 Obesity (BMI 30.0-34.9) E66.9 Elevated PSA R97.20 Tubular adenoma of colon D12.6
== END 2024-03-17 10:19 | disposition home or self-care (01) ==
PROVIDERS: PCP Internal Medicine; Visit Provider Internal Medicine
DX: Z00.00 Encounter for general adult medical examination without abnormal findings (principal); E66.9 Obesity, unspecified; Z68.30 Body mass index [BMI] 30.0-30.9, adult; R73.01 Impaired fasting glucose; K21.9 Gastro-esophageal reflux disease without esophagitis; R97.20 Elevated prostate specific antigen [PSA]; D12.6 Benign neoplasm of colon, unspecified
CPT/HCPCS: 99396

== ENCOUNTER 2024-06-11 11:04 | Outpatient (AMB) | payer BC, SELFPAY ==
--- NOTE | 2024-06-11 11:32 | MHC.OFFWIV ---
Intake Vital Signs 06/11/24 11:33 Height 5 ft 10 in Weight 206 lb BMI 29.6 BP 108/70 Blood Pressure Location Rt brachial Position Sitting Pulse 69 Pulse Source Pulse Oximeter Temp 98.3 F Temp Source Oral Pulse Oximetry (%) 98 Oxygen Delivery Method Room Air Intake Visit Reasons: EP-lt side butt pain/ std check up Intake Note: pt c/o LT side buttocks pain. Fell Friday night. Fell backwards off of a stage. Also requesting STI testing Patient Tobacco Use Status: Never used Tobacco Allergies egg [EGGS] Allergy (Unknown, Verified 06/11/24 11:32) Sneezing Do you need a note to return to daycare/school/sports/work: Yes HPI HPI Comments History of Present Illness Details Patient is a 54-year-old male with 2 complaints. First he is asking if we can do STI screening for gonorrhea and chlamydia as he has a new partner and she is requesting ?papers?. He states he is not symptomatic of any STIs however he has pain in his testicles that come and go, he states the pain occurs 2 to 3 times a week. Nothing seems to provoke it and nothing seems to make it better it just disappears on its own. He denies any abnormal discharge, blood in his urine, pain with urination or fevers. His 2nd complaint is he is having left hip pain. He states that 2 days ago, he fell backwards off of a stage. The fall was about a foot down and he fell backwards onto his left hip and hit his head. He did not lose consciousness, he is not on a blood thinner. He states he was able to get up and walk around but with some pain. He has been ambulating at home with a cane and taking ibuprofen without much relief. He states the pain is worse when he walks and describes it as being central in the back of his left buttock and radiating down his leg as a sharp shooting pain. He denies loss of control of his bladder or bowels. [facility] Medical History (Updated 06/11/24 @ 11:56 by Malinda Braxton PA-C) Adenoma of colon Tubular adenoma of colon Elevated PSA Neck pain Back pain Surgical History History of colonoscopy (~01/09/24) History of nasal surgery History of colonoscopy H/O hemorrhoidectomy Family History Mother Cancer Kidney problem History of brain cancer Father Cancer Colon polyps Social History (Updated 03/17/24 @ 09:59 by Claudia Fontana MD) Housing: House Alcohol intake: current Alcohol intake frequency: a few times a week Comment: 4 out of 8 days- 4 drinks Patient Tobacco Use Status: Never used Tobacco Tobacco use type: Cigarette Years Smoked: edible e-Cigarette/Vaping Use: Never Used Second Hand Smoke Exposure: Yes service: No Current occupational status: employed Cognitive needs: No Hearing needs: No Vision needs: Yes Review of Systems Const All systems reviewed & are unremarkable except as noted in HPI and below Physical Exam Vital Signs: Last Vital Signs Temp 98.3 F 06/11/24 11:33 Pulse 69 06/11/24 11:33 BP 108/70 06/11/24 11:33 Pulse Ox 98 06/11/24 11:33 Oxygen Delivery Method Room Air 06/11/24 11:33 BMI result Body Mass Index 29.6 Const General: cooperative, healthy appearing, comfortable, no acute distress and well developed Orientation/consciousness: patient oriented x3 Limitations: no limitations HEENT Head: Yes normal to inspection Ears: hearing grossly normal bilaterally General nose exam: Normal external nose present Face and sinus: Yes normal facial exam Eyes General: appearance normal, both eyes and all related structures Neck Neck: Yes normal visual inspection and Yes full ROM Resp Effort & Inspection: normal respiratory effort and able to speak in complete sentences Skin General skin exam: no rashes or lesions noted Neuro General: patient oriented x3 Extrem General: Yes normal to inspection Left lower extremity: hip/thigh (TTP central left buttock) Details: normal to inspection, tenderness (left buttocks) and normal ROM (with pain); no swelling, no abrasions, no lacerations, no ecchymosis, no deformity and no unusual warmth Assessment & Plan Assessment & Plan (1) Accidental fall: Code(s): W19.XXXA - Unspecified fall, initial encounter Qualifiers: Encounter type: initial encounter Qualified Code(s): W19.XXXA - Unspecified fall, initial encounter Plan: We will get left hip and pelvic x-ray, recommended he use Aleve ATC for the next 3-4 days, continue to ambulate with a cane and rest as much as he can, he should also use ice on the area. Sent prednisone burst to pharmacy for further anti-inflammatory effects. If no improvement in pain in the next week, he should follow up with his PCP. (2) Hip pain: Code(s): M25.559 - Pain in unspecified hip Qualifiers: Laterality: left Qualified Code(s): M25.552 - Pain in left hip Plan: See above (3) Screening examination for STI: Code(s): Z11.3 - Encounter for screening for infections with a predominantly sexual mode of transmission Plan: Sent gonorrhea and chlamydia testing. Did explain to patient this does not cover him for syphilis or HIV. Educated patient on symptoms of both of those infections. Plan See above Orders: Orders XR hip LT w PEL1V Today M25.559 - Pain in unspecified hip, W19.XXXA - Unspecified fall, initial encounter Medications: New prednisone 20 mg PO DAILY 5 tabs 0RF Coding Level of Care Code Est Pt Level 4 (10709) Diagnoses Accidental fall, initial encounter W19.XXXA Encounter type: initial encounter Pain of left hip M25.552 Laterality: left Screening examination for STI Z11.3
[2024-06-11 11:33] VITALS: BP 108/70; PULSE 69; TEMP 36.8; O2SAT 98; BMI 29.6
== END 2024-06-11 12:01 | disposition home or self-care (01) ==
PROVIDERS: PCP Internal Medicine; Visit Provider Physician Assistant
DX: M25.552 Pain in left hip (principal); W19.XXXA Unspecified fall, initial encounter; Z11.3 Encounter for screening for infections with a predominantly sexual mode of transmission
CPT/HCPCS: 99214

== ENCOUNTER 2024-06-11 11:50 | Outpatient (REF) | payer BC, SELFPAY ==
--- NOTE | ~2024-06-11 | XR_ITS ---
EXAMINATION: XR HIP, LEFT CLINICAL INFORMATION: Fall COMPARISON: None available. TECHNIQUE: Two views of the left hip. FINDINGS: No fracture. Alignment is anatomic. Hip joint space is maintained. Soft tissues are unremarkable. Contour irregularity with subchondral cyst formation along the superior posterior femoral neck. XR/XR hip LT w PEL1V IMPRESSION: Contour irregularity with subchondral cyst formation along the superior posterior femoral neck has a benign appearance. Electronically signed by: Mis Da Silva MD 06/12/2024 04:50 PM EDT
== END 2024-06-11 11:51 | disposition home or self-care (01) ==
LOC: HO.HMGCX 11:50
PROVIDERS: PCP Internal Medicine; Visit Provider Physician Assistant
DX: M25.552 Pain in left hip (principal); W19.XXXD Unspecified fall, subsequent encounter
CPT/HCPCS: 73502

== ENCOUNTER 2024-06-11 12:33 | Outpatient (REF) | payer BC, SELFPAY ==
[2024-06-11 18:27] LABS: CT PCR NOT DETECTED (Not Detect.); NG PCR NOT DETECTED (Not Detect.)
== END 2024-06-11 12:34 | disposition home or self-care (01) ==
LOC: HO.LAB 12:33
PROVIDERS: Visit Provider Physician Assistant
DX: Z11.3 Encounter for screening for infections with a predominantly sexual mode of transmission (principal)
CPT/HCPCS: 87491; 87591

== ENCOUNTER 2024-11-09 15:35 | Outpatient (AMB) | payer BC, SELFPAY ==
--- NOTE | 2024-11-09 15:37 | MHC.OFFVIS ---
Intake Visit Reasons: Elevated PSA Intake Note: Patient is present for ELEVATED PSA Urology Medication:SILDENAFIL Antibiotic Allergy:NONE Blood Thinner:NONE Bobbin Trucker Required: No Allergies egg [EGGS] Allergy (Unknown, Verified 11/09/24 15:38) Sneezing HPI Comments Details: Hussain is a very pleasant male. He is a patient of Dr. Fontana. He is seen for the following urologic conditions - elevated PSA PSA done through primary care No repeat Lab work today in follow-up 4 weeks Elevated PSA PSA - 03/29 5.7, 11/30 4.3 14% PFSH Medical History (Updated 11/09/24 @ 16:46 by Zan Batista MD) Adenoma of colon Tubular adenoma of colon Elevated PSA Neck pain Back pain Surgical History History of colonoscopy (~01/09/24) History of nasal surgery History of colonoscopy H/O hemorrhoidectomy Family History Mother Cancer Kidney problem History of brain cancer Father Cancer Colon polyps Social History (Updated 03/17/24 @ 09:59 by Claudia Fontana MD) Housing: House Alcohol intake: current Alcohol intake frequency: a few times a week Comment: 4 out of 8 days- 4 drinks Patient Tobacco Use Status: Never used Tobacco Tobacco use type: Cigarette Years Smoked: edible e-Cigarette/Vaping Use: Never Used Second Hand Smoke Exposure: Yes service: No Current occupational status: employed Cognitive needs: No Hearing needs: No Vision needs: Yes Review of Systems Const Denies chills and Denies fever(s) Card Reports no additional complaints and Denies syncope Resp Denies cough GI Denies abdominal pain and Denies heartburn Reports as per HPI and Denies change in libido Neuro Denies syncope Psych Denies change in libido Endo Denies change in libido Physical Exam Const General: cooperative, healthy appearing, comfortable and no acute distress Orientation/consciousness: patient oriented x3 HEENT Face and sinus: Yes normal facial exam Mouth: moist mucous membranes Neck Neck: Yes normal visual inspection, Yes full ROM and Yes trachea midline Chest Chest palpation & inspection: normal inspection of the chest Resp Effort & Inspection: normal respiratory effort, able to speak in complete sentences and no respiratory distress GI Inspection: Yes normal to inspection Back/Spine/Pelvis Cervical Spine: normal cervical lordosis Thoracic/Lumbar Spine: thoracic and lumbar spine normal to inspection Skin General skin exam: no rashes or lesions noted Neuro General: patient oriented x3, gait normal, tone normal and moves all extremities Extrem General: Yes normal to inspection and Yes capillary refill normal Assessment & Plan Assessment & Plan (1) Erectile dysfunction: Code(s): N52.9 - Male erectile dysfunction, unspecified Category: Medical Plan Repeat PSA Four week follow-up Orders: Orders PSA,Total (Free>4and<10) 11/15/24 R97.20 - Elevated prostate specific antigen [PSA] Medications: New tadalafil 5 mg PO DAILY 90 tabs 0RF sexual activity 90 days N52.01 - Erectile dysfunction due to arterial insufficiency Patient Instructions: This note is constructed using voice recognition software. While every effort has been made to ensure accuracy ferry hand errors may have been included. Imaging studies, laboratory and physical exam results were discussed and reviewed in detail. No major barriers to patient understanding were identified. An opportunity to ask questions regarding the treatment plan was provided. All questions were answered. The patient expressed understanding and agreement with the above treatment plan. The patient is aware they should contact our office by phone for worsening of their current condition or the appearance of new urologic symptoms. Compliance is encouraged with any medications and followup testing that is ordered. It is a privilege to participate in the urologic care of your patient. If you have any questions or concerns regarding treatment for the above conditions, or other urologic issues, please do not hesitate to contact me. The office telephone contact is [phone]. Sincerely, Dr Zan Batista MD, [facility] - Urology Compassionate Specialist Care for the Genitourinary System Coding Level of Care Code New Pt Level 4 (84197) Diagnoses Erectile dysfunction N52.9
== END 2024-11-09 16:48 | disposition home or self-care (01) ==
PROVIDERS: PCP Internal Medicine; Visit Provider Urology
DX: N52.9 Male erectile dysfunction, unspecified (principal)
CPT/HCPCS: 99204

== ENCOUNTER → 2024-11-09 15:35 | Outpatient (BNVA) | payer BC, SELFPAY | PROVIDERS: PCP Internal Medicine; Visit Provider Urology ==

== ENCOUNTER 2024-11-15 08:08 | Outpatient (REF) | payer BC, SELFPAY ==
[2024-11-17 13:03] LABS: Free Prostate Spec Ag 0.6 ng/mL; Percent Free Prostate Spec Ag 14 % (calc) (>25); Prostate Specific Ag Total 4.3 ng/mL (< OR = 4.0)
== END 2024-11-15 08:09 | disposition home or self-care (01) ==
LOC: HO.10HDL 08:08
PROVIDERS: Visit Provider Urology
DX: Z12.5 Encounter for screening for malignant neoplasm of prostate (principal); R97.20 Elevated prostate specific antigen [PSA]
CPT/HCPCS: 36415; 84153; 84154

== ENCOUNTER 2024-12-08 14:28 | Outpatient (AMB) | payer BC, SELFPAY ==
--- NOTE | 2024-12-08 14:33 | MHC.OFFVIS ---
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 He is a patient of Dr. Fontana. He is seen for the following urologic conditions - elevated PSA PSA done through primary care Repeat lab work showed PSA noisy and has fallen Represcribed tadalafil He had tried to get a [facility] and they wanted to charge him 300 dollars Elevated PSA PSA - 03/29 5.7, 11/30 4.3 14% PFS Medical History (Updated 11/09/24 @ 16:46 by Zan Batista MD) Adenoma of colon Tubular adenoma of colon Elevated PSA Neck pain Back pain Surgical History History of colonoscopy (~01/09/24) History of nasal surgery History of colonoscopy H/O hemorrhoidectomy Family History Mother Cancer Kidney problem History of brain cancer Father Cancer Colon polyps Social History (Updated 03/17/24 @ 09:59 by Claudia Fontana MD) Housing: House Alcohol intake: current Alcohol intake frequency: a few times a week Comment: 4 out of 8 days- 4 drinks Patient Tobacco Use Status: Never used Tobacco Tobacco use type: Cigarette Years Smoked: edible e-Cigarette/Vaping Use: Never Used Second Hand Smoke Exposure: Yes service: No Current occupational status: employed Cognitive needs: No Hearing needs: No Vision needs: Yes Review of Systems Const All systems reviewed & are unremarkable except as noted in HPI and below Reports no additional complaints Resp Reports no additional complaints GI Reports no additional complaints Reports as per HPI Musc Reports no additional complaints Physical Exam Telemedicine evaluation Appropriate responses Regular breathing rate and rhythm HEENT Head: Yes normal to inspection Ears: hearing grossly normal bilaterally Eyes General: appearance normal, both eyes and all related structures Neck Neck: Yes normal visual inspection Chest Chest palpation & inspection: normal inspection of the chest Resp Effort & Inspection: normal respiratory effort and able to speak in complete sentences Telehealth Telehealth Telehealth Platform: [facility] Location of provider rendering services: practice address Location of patient: address on file Patient Identification confirmed using: Name, : Yes Telehealth method: video Patient verbally consented to treatment: Yes Patient verbally consented to billing insurance company: Yes Patient informed of any privacy concerns related to visit: Yes Minutes spent on Phone/Video with Pt.: 15 Assessment & Plan Assessment & Plan (1) Elevated PSA: Code(s): R97.20 - Elevated prostate specific antigen [PSA] Category: Medical Plan Re prescription tadalafil Three-month follow-up repeat PSA Orders: Orders PSA,Total (Free>4and<10) 3 Months R97.20 - Elevated prostate specific antigen [PSA] Medications: Changed From tadalafil 5 mg PO DAILY 90 days 90 tabs 0RF sexual activity N52.01 - Erectile dysfunction due to arterial insufficiency To tadalafil BIN N Group [facility] DR33 [id number] 5 mg PO DAILY 90 days 90 tabs 1RF sexual activity N52.01 - Erectile dysfunction due to arterial insufficiency Patient Instructions: This note is constructed using voice recognition software. While every effort has been made to ensure accuracy director of corporate marketing errors may have been included. Imaging studies, laboratory and physical exam results were discussed and reviewed in detail. No major barriers to patient understanding were identified. An opportunity to ask questions regarding the treatment plan was provided. All questions were answered. The patient expressed understanding and agreement with the above treatment plan. The patient is aware they should contact our office by phone for worsening of their current condition or the appearance of new urologic symptoms. Compliance is encouraged with any medications and followup testing that is ordered. It is a privilege to participate in the urologic care of your patient. If you have any questions or concerns regarding treatment for the above conditions, or other urologic issues, please do not hesitate to contact me. The office telephone contact is [phone]. Sincerely, Dr Zan Batista MD, [facility] - Urology Compassionate Specialist Care for the Genitourinary System Coding Level of Care Code Tele Est Pt Level 4 (69273) Complex EM visit Add On G2211 Diagnoses Elevated PSA R97.20
== END 2024-12-08 15:24 | disposition home or self-care (01) ==
LOC: HO.HUSH 14:28
PROVIDERS: PCP Internal Medicine; Visit Provider Urology
DX: R97.20 Elevated prostate specific antigen [PSA] (principal)
CPT/HCPCS: 99214

== ENCOUNTER → 2024-12-08 14:28 | Outpatient (BNVA) | payer BC, SELFPAY | PROVIDERS: PCP Internal Medicine; Visit Provider Urology ==

== ENCOUNTER 2025-03-07 08:10 | Outpatient (REF) | payer BC, SELFPAY ==
[2025-03-07 09:47] LABS: MANUAL DIFF FLAG NO
[2025-03-07 10:16] LABS: Basophils Percent Auto 0.4 % (0-2); Eosinophils Absolute Auto 0.4 X10*3/uL (0.0-0.4); Eosinophils Percent Auto 5.2 % (0-4); Hematocrit 48.6 % (42.0-52.0); Hemoglobin 16.3 g/dl (14.0-18.0); Imm Gran Abs Auto 0.02 X10*3/uL (0.00-0.03); Imm Gran Pct Auto 0.3 % (0.0-0.4); Lymphocytes Absolute Auto 1.9 X10*3/uL (1.2-4.9); Lymphocytes Percent Auto 27.8 % (20-40); Mean Corpuscular HGB Conc 33.5 g/dl (31.0-36.0); Mean Corpuscular Hemoglobin 30.9 pg (27.0-33.0); Mean Corpuscular Volume 92.2 fL (80.0-98.0); Mean Platelet Volume 9.3 fL (9.4-12.4); Monocytes Absolute Auto 0.8 X10*3/uL (0.1-1.2); Monocytes Percent Auto 10.8 % (2-11); Neutrophils Absolute Auto 3.9 x10*3/uL (2.0-8.3); Neutrophils Percent Auto 55.5 % (45-73); Platelet Count 220 X10*3/uL (160-400); Red Blood Count 5.27 X10*6/uL (4.60-5.80); Red Cell Distribution Width 13.2 % (11.0-16.0)
[2025-03-07 10:26] LABS: Estimated Average Glucose 123 mg/dL; Hemoglobin A1c % 5.9 % (<6.0)
[2025-03-07 10:53] LABS: Alanine Aminotransferase 44 U/L (0-40); Albumin Level 4.3 g/dL (3.5-5.0); Alkaline Phosphatase 61 U/L (39-117); Anion Gap 11 (12-20); Aspartate Amino Transferase 29 U/L (5-37); Bilirubin Total 0.5 mg/dL (0.0-1.0); Blood Urea Nitrogen 21 mg/dL (9-16); Calcium 9.3 mg/dL (8.4-10.2); Carbon Dioxide 22 mmol/L (22-29); Chloride 112 mmol/L (96-108); Cholesterol 196 mg/dL (<200); Estimated Glomerular Filt Rate > 60; Free T4 (Free Thyroxine) 0.84 ng/dL (0.71-1.85); Glucose Random 116 mg/dL (60-115); HDL Cholesterol 51 mg/dL (>40); LDL Cholesterol Calculated 128 mg/dL (<100); Potassium 4.2 mmol/L (3.3-5.1); Sodium 141 mmol/L (135-145); Thyroid Stimulating Hormone 2.22 uIU/mL (0.32-4.0); Triglycerides 86 mg/dL (<150)
[2025-03-07 10:57] LABS: PSA,Total (Free>4and<10) 4.68 ng/mL (0.00-4.00)
[2025-03-07 11:04] LABS: Folate 10.1 ng/mL (> or = 4.0); Vitamin B12 260 pg/mL (200-900)
[2025-03-08 13:43] LABS: Free Prostate Spec Ag 0.6 ng/mL; Percent Free Prostate Spec Ag 16 % (calc) (>25); Prostate Specific Ag Total 3.8 ng/mL (< OR = 4.0)
== END 2025-03-07 08:11 | disposition home or self-care (01) ==
LOC: HO.10HDL 08:10
PROVIDERS: Internal Medicine; Visit Provider Urology
DX: R97.20 Elevated prostate specific antigen [PSA] (principal); E78.00 Pure hypercholesterolemia, unspecified; R73.01 Impaired fasting glucose; Z12.5 Encounter for screening for malignant neoplasm of prostate
CPT/HCPCS: 36415; 80053; 80061; 82607; 82746; 83036; 84153; 84154; 84439; 84443; 85025

== ENCOUNTER 2025-03-09 14:56 | Outpatient (AMB) | payer BC, SELFPAY ==
--- NOTE | 2025-03-09 15:00 | A.OFFVIS_ITS ---
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 He is a patient of Dr. Fontana. He is seen for the following urologic conditions - elevated PSA - erectile dysfunction Telemedicine Evaluation 15 min Consultation [employer] Laura Video Good success daily tadalafil with on demand 100 PSA remains low Repeat PSA in six-month to ensure stability Elevated PSA PSA - 03/29 5.7, 11/30 4.3 14%, 03/30 3.8 16% [facility] Medical History (Updated 11/09/24 @ 16:46 by Zan Batista MD) Adenoma of colon Tubular adenoma of colon Elevated PSA Neck pain Back pain Surgical History History of colonoscopy (~01/09/24) History of nasal surgery History of colonoscopy H/O hemorrhoidectomy Family History Mother Cancer Kidney problem History of brain cancer Father Cancer Colon polyps Social History (Updated 03/17/24 @ 09:59 by Claudia Fontana MD) Housing: House Alcohol intake: current Alcohol intake frequency: a few times a week Comment: 4 out of 8 days- 4 drinks Patient Tobacco Use Status: Never used Tobacco Tobacco use type: Cigarette Years Smoked: edible e-Cigarette/Vaping Use: Never Used Second Hand Smoke Exposure: Yes service: No Current occupational status: employed Cognitive needs: No Hearing needs: No Vision needs: Yes Review of Systems Const All systems reviewed & are unremarkable except as noted in HPI and below Reports no additional complaints Resp Reports no additional complaints GI Reports no additional complaints Reports as per HPI Musc Reports no additional complaints Physical Exam Telemedicine evaluation Appropriate responses Regular breathing rate and rhythm HEENT Head: Yes normal to inspection Ears: hearing grossly normal bilaterally Eyes General: appearance normal, both eyes and all related structures Neck Neck: Yes normal visual inspection Chest Chest palpation & inspection: normal inspection of the chest Resp Effort & Inspection: normal respiratory effort and able to speak in complete sentences Telehealth Telehealth Telehealth Platform: [employer] Location of provider rendering services: practice address Location of patient: address on file Patient Identification confirmed using: Name, : Yes Telehealth method: video Patient verbally consented to treatment: Yes Patient verbally consented to billing insurance company: Yes Patient informed of any privacy concerns related to visit: Yes Minutes spent on Phone/Video with Pt.: 15 Assessment & Plan Assessment & Plan (1) Elevated PSA: Code(s): R97.20 - Elevated prostate specific antigen [PSA] Category: Medical (2) Erectile dysfunction: Code(s): N52.9 - Male erectile dysfunction, unspecified Category: Medical Plan Six-month follow-up PSA office Orders: Orders PSA,Total (Free>4and<10) 6 Months R97.20 - Elevated prostate specific antigen [PSA] Patient Instructions: This note is constructed using voice recognition software. While every effort has been made to ensure accuracy detail sergeant errors may have been included. Imaging studies, laboratory and physical exam results were discussed and reviewed in detail. No major barriers to patient understanding were identified. An opportunity to ask questions regarding the treatment plan was provided. All questions were answered. The patient expressed understanding and agreement with the above treatment plan. The patient is aware they should contact our office by phone for worsening of their current condition or the appearance of new urologic symptoms. Compliance is encouraged with any medications and followup testing that is ordered. It is a privilege to participate in the urologic care of your patient. If you have any questions or concerns regarding treatment for the above conditions, or other urologic issues, please do not hesitate to contact me. The office telephone contact is [phone]. Sincerely, Dr Zan Batista MD, [facility] - Urology Compassionate Specialist Care for the Genitourinary System Coding Level of Care Code Tele Est Pt Level 3 (88466) Complex EM visit Add On G2211 Diagnoses Elevated PSA R97.20 Erectile dysfunction N52.9
== END 2025-03-09 15:49 | disposition home or self-care (01) ==
LOC: HO.HUSH 14:56
PROVIDERS: PCP Internal Medicine; Visit Provider Urology
DX: R97.20 Elevated prostate specific antigen [PSA] (principal); N52.9 Male erectile dysfunction, unspecified
CPT/HCPCS: 99213

== ENCOUNTER 2025-03-28 10:08 | Outpatient (AMB) | payer BC, SELFPAY ==
[2025-03-28 10:10] VITALS: BP 116/72; PULSE 81; TEMP 36.3; O2SAT 95; BMI 31.1
--- NOTE | 2025-03-28 10:10 | MHC.PC.OV ---
Vital Signs 03/28/25 10:10 Height 5 ft 10 in Weight 217 lb BMI 31.1 BP 116/72 Blood Pressure Location Lt brachial Position Sitting Pulse 81 Pulse Source Pulse Oximeter Temp 97.3 F Temp Source Temporal Artery Scan Pulse Oximetry (%) 95 Oxygen Delivery Method Room Air Intake Visit Reasons: Annual Exam Allergies egg (EGGS) Allergy (Unknown, Verified 03/28/25 10:13) Sneezing Medication List - Last Reconciled 03/28/25 by Claudia Fontana MD cyclobenzaprine 5 mg PO BEDTIME PRN sildenafil 100 mg PO DAILY PRN tadalafil 5 mg PO DAILY 90 days Tobacco use date assessed: 03/28/25 Dental Screening Dental Screen Date: 03/28/25 Did you have a dental visit in the last 12 months?: Yes Did you have a dental problem in the last 6 months where you did not have access to dental care?: No Was dental information given to patient?: Patient has dentist [facility] Medical History Adenoma of colon Tubular adenoma of colon Elevated PSA Neck pain Back pain Surgical History History of colonoscopy (~01/09/24) History of nasal surgery History of colonoscopy H/O hemorrhoidectomy Family History (Updated 03/28/25 @ 10:24 by Claudia Fontana MD) Mother Cancer Kidney problem History of brain cancer Father Cancer Colon polyps Primary cancer of bone marrow Social History Housing: House Alcohol intake: current Alcohol intake frequency: a few times a week Comment: 4 out of 8 days- 4 drinks Patient Tobacco Use Status: Never used Tobacco Tobacco use type: Cigarette Years Smoked: edible e-Cigarette/Vaping Use: Never Used Second Hand Smoke Exposure: Yes service: No Current occupational status: employed Cognitive needs: No Hearing needs: No Vision needs: Yes Questionnaire PHQ-9 Over the last 2 weeks, how often have you been bothered by any of the following problems? 1. Little interest or pleasure in doing things: not at all 2. Feeling down, depressed, or hopeless: not at all 3. Trouble falling or staying asleep, or sleeping too much: not at all 4. Feeling tired or having little energy: several days 5. Poor appetite or overeating: not at all 6. Feeling bad about yourself - or that you are a failure or have let yourself or your family down: not at all 7. Trouble concentrating on things, such as reading the newspaper or watching television: not at all 8. Moving or speaking so slowly that other people could have noticed. Or the opposite - being so fidgety or restless that you have been moving around a lot more than usual: not at all 9. Thoughts that you would be better off or of hurting yourself in some way: not at all Total score: 1 Depression Screening Interpretation: Negative Depression Screening Done: Yes 70935 - PHQ-9 Billing: Yes Source: Developed by Drs. Jose Alfredo Carrillo, Preethi Yeboah, Eren Klein and colleagues, with an educational trinity from [employer]. Thrive Questionnaire Date Thrive assessed: 03/28/25 I am a: Patient What is your living situation today?: I have a steady place to live Within the past 12 months, did the food you bought not last and you didn't have the money to get more?: Never true Within the past 12 months, did you worry whether your food would run out before you got money to buy more?: Never true Do you have trouble paying for medicines?: No Do you have trouble getting transportation to medical appointments?: No Do you have trouble paying your heating and electricity bill?: No Do you have trouble taking care of your child, family member or friend?: No Do you have trouble with day-to-day activities such as bathing, preparing meals, shopping, managing finances, etc.?: No Are you currently unemployed and looking for a job?: No Are you interested in more education?: No Please select the resources that you would like help with: None Currently or been in a relationship where the following occur: No concerns reported THRIVE Score: 0 AUDIT C Alcohol Use Questionnaire (AUDIT-C) 1. How often do you have a drink containing alcohol?: 2-3 times a week 2. How many drinks containing alcohol do you have on a typical day when you are drinking?: 5 or 6 3. How often do you have six or more drinks on one occasion?: Weekly Total Score: 8 ALONDRA-7 AMB Questionnaire ALONDRA-7 Date ALONDRA - 7 assessed: 03/28/25 Feeling nervous, anxious, or on edge: 0 = Not at all Not being able to stop or control worryin = Not at all Worrying too much about different things: 0 = Not at all Trouble relaxin = Not at all Being so restless that it is hard to sit still: 0 = Not at all Becoming easily annoyed or irritable: 0 = Not at all Feeling afraid as if something awful might happen: 0 = Not at all Total ALONDRA-7 score (0-4 normal; 5-9 mild; 10-14 moderate; 15-21 severe): 0 Source: Developed by Drs. Jose Alfredo Carrillo, Preethi Yeboah, Eren Klein and colleagues, with an educational trinity from [employer]. ALONDRA-7 Assessment Billing ALONDRA-7 Assessment Tool: ALONDRA-7 Assessment 59879 Review of Systems Const Denies poor appetite and Denies weakness Eyes Denies no additional complaints ENT Reports Normal hearing present, Denies dizziness, Denies nasal congestion, Denies tinnitus and Denies sore throat Card Denies chest pain, Denies syncope, Denies rapid heart rate and Denies dyspnea Resp Denies cough and Denies dyspnea GI Denies change in stool character, Reports constipation, Denies diarrhea, Denies nausea and Denies vomiting Denies dysuria and Denies urinary frequency Neuro Reports Normal hearing present, Denies confusion, Denies dizziness, Denies syncope and Denies weakness Psych Denies confusion Physical exam (Primary Care) Vital Signs: Last Vital Signs Temp 97.3 F 03/28/25 10:10 Pulse 81 03/28/25 10:10 BP 116/72 03/28/25 10:10 Pulse Ox 95 03/28/25 10:10 Oxygen Delivery Method Room Air 03/28/25 10:10 BMI result Body Mass Index 31.1 Tobacco/Smoking Status: Tobacco use Status Tobacco use date assessed 03/28/25 03/28/25 10:14 Patient Tobacco Use Status Never used Tobacco 03/28/25 10:14 Tobacco use type Cigarette 03/28/25 10:14 e-Cigarette/Vaping Use Never Used 03/28/25 10:14 PHQ-9: PHQ-9 Score PHQ-9: Total score 1 03/28/25 10:27 Depression Screening Interpretation: Negative Thrive Assessment: Date of Thrive Assessment Date Thrive assessed 03/28/25 03/28/25 10:14 Currently or been in a relationship where the following occur: No concerns reported Const General: No confusion Orientation/consciousness: No confusion HENMT Head: Yes normocephalic Ears: external ears normal and TM's normal bilaterally Face and sinus: Yes normal facial exam Mouth: moist mucous membranes Throat: Yes tonsils normal Eyes Conjunctivae: conjunctivae normal Pupils: Equal, round and reactive pupils present and Pupil accommodation reflex normal Direct Ophthalmoscopy: normal light reflex Neck Neck: No lymphadenopathy Thyroid: Thyroid normal Chest Chest palpation & inspection: normal inspection of the chest Resp Effort & Inspection: normal respiratory effort and no audible wheezes Auscultation: clear to auscultation bilaterally, no crackles, no wheezes and lung sounds not diminished Cardio Rate: regular rate Rhythm: regular rhythm Peripheral pulses: radial pulses present and dorsalis pedis present GI Palpation (GI): no masses Auscultation: normal bowel sounds and normoactive bowel sounds Rectal Exam - Male: Yes deferred Skin General skin exam: no rashes or lesions noted Rashes: no rashes Neuro General: No confusion Cranial nerves: Yes Equal, round and reactive pupils present and Yes Normal hearing present Cognition (Neuro): normal cognition Gait exam (Neuro): Normal gait present Motor exam (neuro): 5/5 motor strength present throughout Deep tendon reflexes (DTR's): Right brachioradialis reflex intensity grade: 2+, Left brachioradialis reflex intensity grade: 2+, Right patellar reflex intensity grade: 2+ and Left patellar reflex intensity grade: 2+ Extrem General: No edema Coding Level of Care Code Est Pt Prev Care 40-64y(68728) Diagnoses Annual physical exam Z00.00 Impaired fasting blood sugar R73.01 Obesity (BMI 30.0-34.9) E66.9 GERD (gastroesophageal reflux disease) K21.9 Tubular adenoma of colon D12.6 Elevated PSA R97.20 LFT elevation R79.89 Fatty liver K76.0 Vitamin B 12 deficiency E53.8 Alcohol abuse F10.10 Additional Codes ALONDRA-7 Assessment Billing - ALONDRA-7 Assessment Tool: ALONDRA-7 Assessment 69507 ([id number]) PHQ-9 - 07906 - PHQ-9 Billing: Yes ([id number]) Assessment & Plan Assessment & Plan (1) Annual physical exam: Code(s): Z00.00 - Encounter for general adult medical examination without abnormal findings Category: Medical Plan: Patient is advised to eat healthy, keep well hydrated, keep active and have adequate sleep. (2) Impaired fasting blood sugar: Code(s): R73.01 - Impaired fasting glucose Category: Medical Plan: Decrease the amount of carbohydrate intake, pasta, bread, rice and potatoes are all sugar and that is aside from all the sweet stuff, remember that fruits are good but they are Sweet also. (3) Obesity (BMI 30.0-34.9): Code(s): E66.9 - Obesity, unspecified Category: Medical Plan: Diet and exercise (4) GERD (gastroesophageal reflux disease): Code(s): K21.9 - Gastro-esophageal reflux disease without esophagitis Category: Medical Plan: Avoid the foods that causes that usually spicy foods, tomato products, juices, coffee, soda and foods that your sensitive to. After eating do not lie down, allow 3-4 hours before in lie down. And keep the head of bed above 30 degrees to avoid the acid from going up. (5) Tubular adenoma of colon: Comment: May 202201/2024 Dr. Garcia Code(s): D12.6 - Benign neoplasm of colon, unspecified Category: Medical Plan: Patient follows up with colon test in 3 years (6) Elevated PSA: Code(s): R97.20 - Elevated prostate specific antigen [PSA] Category: Medical Plan: Patient follows up with urology (7) LFT elevation: Code(s): R79.89 - Other specified abnormal findings of blood chemistry Category: Medical Plan: Patient has been told having fatty liver. Low-fat diet and exercise (8) Fatty liver: Code(s): K76.0 - Fatty (change of) liver, not elsewhere classified Category: Medical Plan: Low-fat diet and exercise (9) Vitamin B 12 deficiency: Code(s): E53.8 - Deficiency of other specified B group vitamins Category: Medical Plan: Vitamin B12 1000 mcg once a day (10) Alcohol abuse: Code(s): F10.10 - Alcohol abuse, uncomplicated Category: Social Hx Plan: Patient is advised to abstain from alcohol Plan History of Present Illness The patient is a 55-year-old male presenting with Schatzki's ring. He manages the condition by being cautious with food intake, as large bites can disrupt meals. A liquid test was conducted two to three years ago, and surgery was considered but not pursued due to its invasive nature. The patient reports loose stools, attributing them to dietary habits. The stools are described as somewhat formed but mostly loose, occurring frequently. He is considering psyllium fiber as a potential remedy. The patient has multiple moles and acknowledges the need for dermatological evaluation. A referral to a metal fitter was previously provided but not followed up due to other priorities. Health Maintenance - Dermatology referral for mole evaluation - Consideration of psyllium fiber for bowel regulation Social History - Employment: Works at the [employer], has accumulated significant sick leave hours - Family: Cares for his 82-year-old mother who lives below him - Diet: Consumes vegetables and fiber, but acknowledges dietary habits may contribute to loose stools Review of Systems - Gastrointestinal: Reports loose stools, denies nausea, vomiting, or swallowing difficulties - Cardiovascular: Denies chest pain, dyspnea, or palpitations - Respiratory: Denies shortness of breath or respiratory distress - Dermatological: Reports multiple moles, no acute concerns Physical Exam General: Cooperative, healthy appearing, comfortable, no acute distress and well developed Orientation: Patient oriented x3 Limitations: No limitations Head: Normal to inspection Ears: Hearing grossly normal bilaterally Nose: Normal external nose present Face and sinus: Normal facial exam Eyes: Appearance normal, both eyes and all related structures Neck: Normal visual inspection and Yes full ROM Respiratory: Normal respiratory effort and able to speak in complete sentences. Clear to auscultation bilaterally Cardiovascular: Regular rate and rhythm. Normal S1 and S2 GI: Normal to inspection. Soft to palpation and nontender. Patient reports loose stools most of the time, somewhat formed. Skin: No rashes or lesions noted. Patient has a lot of moles and needs a dermatology referral. Neuro: Patient oriented x3 Extremities: Normal to inspection Results - Gastrointestinal: Liquid test conducted two to three years ago for Schatzki's ring Plan The patient will continue to manage Schatzki's ring conservatively by being cautious with food intake, avoiding large bites that may exacerbate symptoms. A referral to a metal fitter will be provided for evaluation of multiple moles, as the patient acknowledges the need for dermatological assessment. For the management of loose stools, the patient is advised to consider psyllium fiber supplementation to improve bowel regularity. Patient was informed and verbally consented to the use of an ambient scribe for clinic note documentation during this visit. Discussion Notes I discussed with the patient the management of Schatzki's ring, emphasizing the importance of cautious eating habits to prevent symptom exacerbation. We also talked about the need for dermatological evaluation of his moles, and I will provide a referral for this purpose. For his loose stools, I recommended considering psyllium fiber supplementation to help regulate bowel movements. Patient Instructions - Eat smaller bites to manage Schatzki's ring symptoms. - Follow up with a metal fitter for mole evaluation. - Consider using psyllium fiber to help with loose stools. Orders: Orders Complete Blood Count Auto Diff 1 Year R73.01 - Impaired fasting glucose Free T4 (Free Thyroxine) 1 Year R73.01 - Impaired fasting glucose Vitamin B12 and Folate 1 Year R73.01 - Impaired fasting glucose Prostate Specific Antigen Scr 1 Year R73.01 - Impaired fasting glucose Comprehensive Met. Panel 1 Year R73.01 - Impaired fasting glucose Hemoglobin A1c 1 Year R73.01 - Impaired fasting glucose Lipid Panel 1 Year E78.00 - Pure hypercholesterolemia, unspecified, R73.01 - Impaired fasting glucose Thyroid Stimulating Hormone 1 Year R73.01 - Impaired fasting glucose Hepatitis B,C Profile 1 Year R73.01 - Impaired fasting glucose, R79.89 - Other specified abnormal findings of blood chemistry Referrals Dermatology Referral D22.9 - Melanocytic nevi, unspecified
== END 2025-03-28 10:43 | disposition home or self-care (01) ==
LOC: HO.HMCH 10:09
PROVIDERS: PCP Internal Medicine; Visit Provider Internal Medicine
DX: Z00.00 Encounter for general adult medical examination without abnormal findings (principal); E66.9 Obesity, unspecified; Z68.31 Body mass index [BMI] 31.0-31.9, adult; R73.01 Impaired fasting glucose; K21.9 Gastro-esophageal reflux disease without esophagitis; D12.6 Benign neoplasm of colon, unspecified; R97.20 Elevated prostate specific antigen [PSA]; R79.89 Other specified abnormal findings of blood chemistry; K76.0 Fatty (change of) liver, not elsewhere classified; E53.8 Deficiency of other specified B group vitamins; F10.10 Alcohol abuse, uncomplicated

== ENCOUNTER → 2025-03-28 10:08 | Outpatient (BNVA) | payer BC, SELFPAY | PROVIDERS: PCP Internal Medicine; Visit Provider Internal Medicine | DX: Z00.00 Encounter for general adult medical examination without abnormal findings (principal); R73.01 Impaired fasting glucose; E66.9 Obesity, unspecified; K21.9 Gastro-esophageal reflux disease without esophagitis; D12.6 Benign neoplasm of colon, unspecified; R97.20 Elevated prostate specific antigen [PSA]; R79.89 Other specified abnormal findings of blood chemistry; K76.0 Fatty (change of) liver, not elsewhere classified; E53.8 Deficiency of other specified B group vitamins; F10.10 Alcohol abuse, uncomplicated; K22.2 Esophageal obstruction; R19.7 Diarrhea, unspecified; E78.00 Pure hypercholesterolemia, unspecified | CPT/HCPCS: 96127 ==

== ENCOUNTER 2025-04-05 10:43 | Outpatient (AMB) | payer BC, SELFPAY ==
[2025-04-05 10:56] VITALS: BP 118/58; PULSE 84; TEMP 36.9; O2SAT 96
--- NOTE | 2025-04-05 10:56 | AM.OFFWIN_ITS ---
Intake Vital Signs 04/05/25 10:56 Height 5 ft 10 in BP 118/58 L Blood Pressure Location Rt brachial Position Sitting Pulse 84 Pulse Source Pulse Oximeter Temp 98.4 F Temp Source Oral Pulse Oximetry (%) 96 Oxygen Delivery Method Room Air Intake Visit Reasons: EP-rt eye bee sting Intake Note: Patient present with a bee sting to the right eye Patient Tobacco Use Status: Never used Tobacco Steward/Stewardess Deck Required: No Allergies egg (EGGS) Allergy (Unknown, Verified 04/05/25 11:00) Sneezing Medication List - Last Reconciled 04/05/25 by Maryjane Ortiz MD cyclobenzaprine 5 mg PO BEDTIME PRN sildenafil 100 mg PO DAILY PRN tadalafil 5 mg PO DAILY 90 days Do you need a note to return to daycare/school/sports/work: No HPI EP-rt eye bee sting HPI Details History - The patient is a 55-year-old male pres enting with a bee sting to the right eyebrow. - The incident occurred approximately on e hour prior to the visit while the patient was working outside. - The patient reports a history of bee s tings with localized swelling but no systemic reactions such as tongue or lip swelling. - The current sting resulted in swelling and mild pain in the right eye area, impairing vision due to swelling. - The patient has already taken one dose of Benadryl prior to the visit. Problem List - Bee sting to the right eyebrow - Localized swelling and mild pain in th e right eye area Patient Instructions - Apply cold compresses to the affected area to reduce swelling. - Take prednisone as prescribed to manag e inflammation. Medrol Dosepak sent - Continue taking Benadryl, up to two ta blets at night, 1 in the morning for couple of days Review of Systems - General: No fever no chills - Neurological: No headaches no dizziness - Ear nose throat: No sore throat no hearing difficulty no ear pain - Cardiovascular: No syncope, no chest pain, no palpitations - Gastrointestinal: No nausea vomiting or diarrhea Physical Exam General: No acute distress HEENT: Swelling in the right eyebrow due to bee sting, slight pain reported Eye exam: Pupils reactive to light, no conjunctival injection no discharge noticed Neck: Supple Respiratory system: Able to talk in full sentences, no audible wheeze 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 Skin: Normal turgor [facility] Medical History Adenoma of colon Tubular adenoma of colon Elevated PSA Neck pain Back pain Surgical History History of colonoscopy (~01/09/24) History of nasal surgery History of colonoscopy H/O hemorrhoidectomy Family History Mother Cancer Kidney problem History of brain cancer Father Cancer Colon polyps Primary cancer of bone marrow Social History Housing: House Alcohol intake: current Alcohol intake frequency: a few times a week Comment: 4 out of 8 days- 4 drinks Patient Tobacco Use Status: Never used Tobacco Tobacco use type: Cigarette Years Smoked: edible e-Cigarette/Vaping Use: Never Used Second Hand Smoke Exposure: Yes service: No Current occupational status: employed Cognitive needs: No Hearing needs: No Vision needs: Yes Physical Exam Vital Signs: Last Vital Signs Temp 98.4 F 04/05/25 10:56 Pulse 84 04/05/25 10:56 BP 118/58 L 04/05/25 10:56 Pulse Ox 96 04/05/25 10:56 Oxygen Delivery Method Room Air 04/05/25 10:56 Assessment & Plan Assessment & Plan (1) Bee sting reaction: Code(s): T63.441A - Toxic effect of venom of bees, accidental (unintentional), initial encounter Qualifiers: Encounter type: initial encounter Injury intent: accidental or unintentional Qualified Code(s): T63.441A - Toxic effect of venom of bees, accidental (unintentional), initial encounter (2) Swelling of eye, right: Code(s): H57.89 - Other specified disorders of eye and adnexa Plan History - The patient is a 55-year-old male presenting with a bee sting to the right eyebrow. - The incident occurred approximately one hour prior to the visit while the patient was working outside. - The patient reports a history of bee stings with localized swelling but no systemic reactions such as tongue or lip swelling. - The current sting resulted in swelling and mild pain in the right eye area, impairing vision due to swelling. - The patient has already taken one dose of Benadryl prior to the visit. Problem List - Bee sting to the right eyebrow - Localized swelling and mild pain in the right eye area Patient Instructions - Apply cold compresses to the affected area to reduce swelling. - Take prednisone as prescribed to manage inflammation. Medrol Dosepak sent - Continue taking Benadryl, up to two tablets at night, 1 in the morning for couple of days Medications: New methylprednisolone (Medrol (Ramos)) PO PER PKG DIR 21 ea 0RF 6 days Coding Level of Care Code Est Pt Level 3 (91030) Diagnoses Bee sting reaction, accidental or unintentional, initial encounter T63.441A Encounter type: initial encounter Injury intent: accidental or unintentional Swelling of eye, right H57.89
== END 2025-04-05 11:33 | disposition home or self-care (01) ==
PROVIDERS: PCP Internal Medicine; Visit Provider Internal Medicine
DX: T63.441A Toxic effect of venom of bees, accidental (unintentional), initial encounter (principal); H57.89 Other specified disorders of eye and adnexa

== ENCOUNTER 2025-04-21 15:40 | Outpatient (AMB) | payer BC, SELFPAY ==
[2025-04-21 15:43] VITALS: BP 122/84; PULSE 89; TEMP 36.3; O2SAT 96; BMI 30.9
--- NOTE | 2025-04-21 15:43 | A.OFFPC_ITS ---
Vital Signs 04/21/25 15:43 Height 5 ft 10 in Weight 215 lb 6 oz BMI 30.9 BP 122/84 Blood Pressure Location Lt brachial Position Sitting Pulse 89 Pulse Source Pulse Oximeter Temp 97.3 F Temp Source Temporal Artery Scan Pulse Oximetry (%) 96 Oxygen Delivery Method Room Air Intake Visit Reasons: discuss paperwork for mother Allergies egg (EGGS) Allergy (Unknown, Verified 04/21/25 15:43) Sneezing Tobacco use date assessed: 03/28/25 Dental Screening Dental Screen Date: 03/28/25 Did you have a dental visit in the last 12 months?: Yes Did you have a dental problem in the last 6 months where you did not have access to dental care?: No Was dental information given to patient?: Patient has dentist HPI discuss paperwork for mother HPI Details mom had fracture of L hand noted 04/20/2025. PAtient is very stressed and not able to function as she does take care of her , helping with ADL and bathing and cleaning and recently had hip broken [facility] Medical History Adenoma of colon Tubular adenoma of colon Elevated PSA Neck pain Back pain Surgical History History of colonoscopy (~01/09/24) History of nasal surgery History of colonoscopy H/O hemorrhoidectomy Family History Mother Cancer Kidney problem History of brain cancer Father Cancer Colon polyps Primary cancer of bone marrow Social History Housing: House Alcohol intake: current Alcohol intake frequency: a few times a week Comment: 4 out of 8 days- 4 drinks Patient Tobacco Use Status: Never used Tobacco Tobacco use type: Cigarette Years Smoked: edible e-Cigarette/Vaping Use: Never Used Second Hand Smoke Exposure: Yes service: No Current occupational status: employed Cognitive needs: No Hearing needs: No Vision needs: Yes Questionnaire PHQ-9 Over the last 2 weeks, how often have you been bothered by any of the following problems? 1. Little interest or pleasure in doing things: not at all 2. Feeling down, depressed, or hopeless: not at all 3. Trouble falling or staying asleep, or sleeping too much: not at all 4. Feeling tired or having little energy: several days 5. Poor appetite or overeating: not at all 6. Feeling bad about yourself - or that you are a failure or have let yourself or your family down: not at all 7. Trouble concentrating on things, such as reading the newspaper or watching television: not at all 8. Moving or speaking so slowly that other people could have noticed. Or the opposite - being so fidgety or restless that you have been moving around a lot more than usual: not at all 9. Thoughts that you would be better off or of hurting yourself in some way: not at all Total score: 1 Depression Screening Interpretation: Negative Depression Screening Done: Yes Source: Developed by Drs. Jose Alfredo Carrillo, Preethi Yeboah, Eren Klein and colleagues, with an educational trinity from [employer]. Thrive Questionnaire Date Thrive assessed: 03/28/25 I am a: Patient What is your living situation today?: I have a steady place to live Within the past 12 months, did the food you bought not last and you didn't have the money to get more?: Never true Within the past 12 months, did you worry whether your food would run out before you got money to buy more?: Never true Do you have trouble paying for medicines?: No Do you have trouble getting transportation to medical appointments?: No Do you have trouble paying your heating and electricity bill?: No Do you have trouble taking care of your child, family member or friend?: No Do you have trouble with day-to-day activities such as bathing, preparing meals, shopping, managing finances, etc.?: No Are you currently unemployed and looking for a job?: No Are you interested in more education?: No Please select the resources that you would like help with: None Currently or been in a relationship where the following occur: No concerns reported THRIVE Score: 0 AUDIT C Alcohol Use Questionnaire (AUDIT-C) 1. How often do you have a drink containing alcohol?: 2-3 times a week 2. How many drinks containing alcohol do you have on a typical day when you are drinking?: 5 or 6 3. How often do you have six or more drinks on one occasion?: Weekly Total Score: 8 ALONDRA-7 AMB Questionnaire ALONDRA-7 Date ALONDRA - 7 assessed: 03/28/25 Feeling nervous, anxious, or on edge: 0 = Not at all Not being able to stop or control worryin = Not at all Worrying too much about different things: 0 = Not at all Trouble relaxin = Not at all Being so restless that it is hard to sit still: 0 = Not at all Becoming easily annoyed or irritable: 0 = Not at all Feeling afraid as if something awful might happen: 0 = Not at all Total ALONDRA-7 score (0-4 normal; 5-9 mild; 10-14 moderate; 15-21 severe): 0 Source: Developed by Drs. Jose Alfredo Carrillo, Preethi Yeboah, Eren Klein and colleagues, with an educational trinity from [employer]. Physical exam (Primary Care) Vital Signs: Last Vital Signs Temp 97.3 F 04/21/25 15:43 Pulse 89 04/21/25 15:43 BP 122/84 04/21/25 15:43 Pulse Ox 96 04/21/25 15:43 Oxygen Delivery Method Room Air 04/21/25 15:43 BMI result Body Mass Index 30.9 Tobacco/Smoking Status: Tobacco use Status Tobacco use date assessed 03/28/25 04/21/25 15:43 Patient Tobacco Use Status Never used Tobacco 04/21/25 15:43 Tobacco use type Cigarette 04/21/25 15:43 e-Cigarette/Vaping Use Never Used 04/21/25 15:43 PHQ-9: PHQ-9 Score PHQ-9: Total score 1 04/21/25 15:50 Depression Screening Interpretation: Negative Thrive Assessment: Date of Thrive Assessment Date Thrive assessed 03/28/25 04/21/25 15:43 Currently or been in a relationship where the following occur: No concerns reported Const General: alert; No acute distress Eyes Conjunctivae: conjunctivae normal Resp Auscultation: clear to auscultation bilaterally Cardio Rate: regular rate Rhythm: regular rhythm GI Inspection: Yes normal to inspection Extrem General: Yes normal to inspection and No edema Coding Level of Care Code Est Pt Level 4 (24298) Diagnoses Bee sting reaction, accidental or unintentional, initial encounter T63.441A Encounter type: initial encounter Injury intent: accidental or unintentional Obesity (BMI 30.0-34.9) E66.9 Impaired fasting blood sugar R73.01 GERD (gastroesophageal reflux disease) K21.9 Fatty liver K76.0 Anxiety, generalized F41.1 Assessment & Plan Assessment & Plan (1) Bee sting reaction: Code(s): T63.441A - Toxic effect of venom of bees, accidental (unintentional), initial encounter Category: Medical Qualifiers: Encounter type: initial encounter Injury intent: accidental or unintentional Qualified Code(s): T63.441A - Toxic effect of venom of bees, accidental (unintentional), initial encounter Plan: Patient was given prednisone/steroid (2) Obesity (BMI 30.0-34.9): Code(s): E66.9 - Obesity, unspecified Category: Medical Plan: Diet and exercise (3) Impaired fasting blood sugar: Code(s): R73.01 - Impaired fasting glucose Category: Medical Plan: Decrease the amount of carbohydrate intake, pasta, bread, rice and potatoes are all sugar and that is aside from all the sweet stuff, remember that fruits are good but they are Sweet also. (4) GERD (gastroesophageal reflux disease): Code(s): K21.9 - Gastro-esophageal reflux disease without esophagitis Category: Medical Plan: Avoid the foods that causes that usually spicy foods, tomato products, juices, coffee, soda and foods that your sensitive to. After eating do not lie down, allow 3-4 hours before in lie down. And keep the head of bed above 30 degrees to avoid the acid from going up. (5) Fatty liver: Code(s): K76.0 - Fatty (change of) liver, not elsewhere classified Category: Medical Plan: Low-fat diet and exercise (6) Anxiety, generalized: Code(s): F41.1 - Generalized anxiety disorder Category: Medical Plan History of Present Illness The patient is a 55-year-old male presenting with an acute problem related to hepatic steatosis and a history of alcohol abuse. The patient has a history of hepatic steatosis, which has been associated with elevated liver enzymes. He has a history of alcohol abuse, which may contribute to his liver condition. The patient was last seen in March 2025, and his liver enzymes were noted to be elevated at that time. The patient also has a history of impaired glucose tolerance, with an A1c of 5.9, indicating a risk for diabetes. His blood sugar was noted to be elevated during his last blood work in March 2025. Additionally, the patient has a history of a tubular adenoma of the colon, which was last updated in January 2024. The patient experienced a bee sting on the right eye, which resulted in swelling and required treatment with prednisone and diphenhydramine. The patient has been noted to have low vitamin B12 levels, which may require supplementation. Health Maintenance - Colon cancer screening with tubular adenoma noted, up to date as of January 2024 - Monitoring of blood glucose levels due to impaired glucose tolerance - Monitoring of liver function tests due to hepatic steatosis - Vitamin B12 supplementation due to low levels Social History - History of alcohol abuse Review of Systems - Eyes: Reports swelling of the right eye following a bee sting Physical Exam Results - Labs: Normal blood count, normal electrolytes, stable renal function, elevated blood sugar, elevated liver enzymes, low vitamin B12 Plan The patient will continue to monitor liver function tests due to hepatic steatosis and history of alcohol abuse. Lifestyle modifications, including a low-fat diet and exercise, are recommended to manage impaired glucose tolerance and obesity. The patient should continue with regular colon cancer screenings, with the next update due in January 2024. Vitamin supplementation is advised due to low levels. For the bee sting on the right eye, the patient was treated with prednisone and diphenhydramine, and no further intervention is currently required. Patient was informed and verbally consented to the use of an ambient scribe for clinic note documentation during this visit. Discussion Notes Patient Instructions - Monitor liver function tests regularly. - Follow a low-fat diet and engage in regular exercise. - Continue with regular colon cancer screenings. - Take vitamin B12 supplements as advised.
== END 2025-04-21 16:54 | disposition home or self-care (01) ==
LOC: HO.HMCH 15:41
PROVIDERS: PCP Internal Medicine; Visit Provider Internal Medicine
DX: R73.01 Impaired fasting glucose (principal); T63.441A Toxic effect of venom of bees, accidental (unintentional), initial encounter; Z68.30 Body mass index [BMI] 30.0-30.9, adult; E66.9 Obesity, unspecified; K21.9 Gastro-esophageal reflux disease without esophagitis; K76.0 Fatty (change of) liver, not elsewhere classified; F41.1 Generalized anxiety disorder

== ENCOUNTER 2025-09-05 20:19 | Emergency (ER) | payer OTHER, BC, SELFPAY ==
--- NOTE | ~2025-09-05 | XR_ITS ---
CLINICAL HISTORY: jammed ring finger 3 view left fourth digit Comparison: None Findings: No fractures or dislocations. No significant arthritic change. No erosions. No radiopaque foreign body. IMPRESSION: 1. No acute findings This document has been electronically signed by: Darryl Brown MD on 09/05/2025 20:45:01
[2025-09-05 20:22] VITALS: BP 124/73; PULSE 95; RESP 18; TEMP 36.8; O2SAT 96; BMI 30.8
--- NOTE | 2025-09-05 21:15 | ED_ITS ---
HPI - Extremity Problem General Chief complaint: Extremity Injury, Upper Stated complaint: left hand 4th digit injury Time Seen by Provider: 09/05/25 21:14 History of Present Illness ED Provider: Alfreda Carreon NP HPI Narrative: 55-year-old male, medical history significant for anxiety, alcohol abuse and fatty liver disease, GERD, presents to the ED for evaluation of left hand finger pain. 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 He reports pain with range of motion of the finger, specifically making a fist. He was instructed by his department to come to the ED for further assessment. Denies any direct trauma to the area, fall. No chest pain or pressure, shortness of breath, abdominal. No fever, chills. No redness or swelling to the finger. Related Data Home Medications ?Medication ?Instructions ?Recorded ?Confirmed sildenafil 100 mg tablet 100 mg PO DAILY PRN Erectile 09/02/22 04/05/25 Dysfunction cyclobenzaprine 5 mg tablet 5 mg PO BEDTIME PRN muscle spasm 03/28/25 04/05/25 Previous Rx's ?Medication ?Instructions ?Recorded tadalafil 5 mg tablet 5 mg PO DAILY sexual activit y 90 06/07/25 days #90 tabs Allergies Allergy/AdvReac Type Severity Reaction Status Date / Time egg (EGGS) Allergy Unknown Sneezing Verified 09/05/25 20:23 Review of Systems Review of Systems: ROS is otherwise negative unless mentioned in HPI. [facility] Past Medical History Medical History Adenoma of colon Tubular adenoma of colon Elevated PSA Neck pain Back pain Surgical History History of colonoscopy (~01/09/24) History of nasal surgery History of colonoscopy H/O hemorrhoidectomy Family History Family History Mother Cancer Kidney problem History of brain cancer Father Cancer Colon polyps Primary cancer of bone marrow Social History Social History Housing: House Alcohol intake: current Alcohol intake frequency: a few times a week Comment: 4 out of 8 days- 4 drinks Patient Tobacco Use Status: Never used Tobacco Tobacco use type: Cigarette Years Smoked: edible e-Cigarette/Vaping Use: Never Used Second Hand Smoke Exposure: Yes Advance Directives: No Advance Directives Information Provided: Yes service: No Current occupational status: employed Cognitive needs: No Hearing needs: No Vision needs: Yes Physical Exam Exam: Exam: Nursing notes and vital signs reviewed. Constitutional: Well-appearing, NAD. Alert. Oriented X3. Eyes: EOMI. ENT: Pharynx normal. Neck: Normal inspection. Neck supple. CVS: Pulses normal. Respiratory: No respiratory distress. Skin: Skin warm and dry. Normal skin color. Extremities: No lower extremity edema. ROM intact of the left hand, wrist, and fingers. Brisk capillary refill. No tenderness to palpation over the flexor tendon. No swelling, redness of the finger. Neuro: Oriented X 3. No motor deficit. Vital Signs: Vital Signs: Last Vital Signs Temp 98.2 F 09/05/25 20:22 Pulse 95 09/05/25 20:22 Resp 18 09/05/25 20:22 BP 124/73 09/05/25 20:22 Pulse Ox 96 09/05/25 20:22 O2 Del Method Room Air 09/05/25 20:22 BMI result Body Mass Index 30.8 Medical Decision Making Medical Decision Making MDM Narrative: 9:17 PM 09/05/2025 (Alfreda Carreon NP): I evaluated this patient in the triage area, he overall appears well, is answering questions appropriately. 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 He was concerned that he may have jammed the finger or broken a bone. The x-ray here does not show any evidence of any underlying fracture, dislocation. He has full range of motion upon my assessment, but likely has an acute finger sprain given the discomfort. He was given a finger splint in the ED. I recommended over -the-counter Tylenol, ibuprofen use alternating every 4-6 hours. I provided him a work note to return the day after tomorrow, with instructions to use the finger as tolerated. I also provided him follow up with orthopedics. With any worsening complaints, he was provided return precautions to the ED. Differential Diagnosis Differential Diagnoses: The differential diagnosis associated with the presentation includes Fracture, dislocation, sprain Admission/Observation Consideration of admission/observation: Escalation of care including admission/observation considered (Not indicated) Independent Interpretation I performed an independent interpretation of an: Plain X-Ray Interpretation: I have reviewed the patient's imaging and agree with the radiologist's findings. Radiology Impression Discussion of test interpretation with radiology: I have reviewed the radiologist's reading. Radiologist Impression: XR Fingers LT IMPRESSION: 1. No acute findings Independent Historian None External Record Review None Chronic Conditions Patient?s care impacted by: Other (Anxiety) Social Determinants Patient?s care significantly limited by Social Determinants of Health including: Problems related to primary support group and Problems related to employment Discharge Plan Discharge Clinical Impression: Sprain of finger of left hand Patient Disposition: Home, Self-Care Instructions: Jammed Finger (ED), Finger Sprain (ED) Additional Instructions: As we discussed, your x-ray does not show any acute fracture. You likely have an acute finger sprain. We placed you in a finger splint today. Please use this as needed for pain control. You may take this often begin using the finger as tolerated over the next several days. Ibuprofen, Tylenol [id number] alternating every 4-6 hours is recommended for pain. With any worsening complaints, return back to the ED for reassessment. Prescriptions: No Action tadalafil 5 mg tablet 5 mg PO DAILY 90 Days Qty: 90 1RF Rx Instructions: [facility] [id number] sildenafil 100 mg tablet 100 mg PO DAILY PRN (Reason: Erectile Dysfunction) Rx Instructions: administer 30 minutes to 4 hours before activity cyclobenzaprine 5 mg tablet 5 mg PO BEDTIME PRN (Reason: muscle spasm) Referrals: [facility] [Provider Group] Stand Alone Forms: Work/School Release Print Language: Uzbek
[2025-09-05 21:38] VITALS: BP 124/73; PULSE 95; RESP 18; TEMP 36.8; O2SAT 96
== END 2025-09-05 21:38 | disposition home or self-care (01) ==
PROVIDERS: Emergency Provider Emergency Medicine Emergency Medical Services; PCP Internal Medicine
DX: S63.615A Unspecified sprain of left ring finger, initial encounter (principal); M79.642 Pain in left hand; X50.1XXA Overexertion from prolonged static or awkward postures, initial encounter; Y93.9 Activity, unspecified; Y92.9 Unspecified place or not applicable; Y99.0 Civilian activity done for income or pay
CPT/HCPCS: 29130; 73140; 99282; 99283; 99284

== ENCOUNTER → 2025-09-05 20:31 | Outpatient (BNV) | payer BC, SELFPAY | PROVIDERS: Visit Provider Radiology Diagnostic Radiology | DX: S60.945A Unspecified superficial injury of left ring finger, initial encounter (principal); W23.0XXA Caught, crushed, jammed, or pinched between moving objects, initial encounter | CPT/HCPCS: 73140 ==

== ENCOUNTER → 2025-09-07 13:25 | Outpatient (BNVA) | payer OTHER, SELFPAY | PROVIDERS: PCP Internal Medicine; Visit Provider Physician Assistant Medical | DX: S63.615A Unspecified sprain of left ring finger, initial encounter (principal); X50.3XXA Overexertion from repetitive movements, initial encounter; Z02.79 Encounter for issue of other medical certificate | CPT/HCPCS: 99202 ==

== ENCOUNTER 2025-09-09 07:44 | Outpatient (REF) | payer OTHER, SELFPAY ==
[2025-09-09 11:09] LABS: PSA,Total (Free>4and<10) 4.25 ng/mL (0.00-4.00)
[2025-09-12 12:29] LABS: Free Prostate Spec Ag 0.6 ng/mL; Percent Free Prostate Spec Ag 15 % (calc) (>25)
== END 2025-09-09 07:45 | disposition home or self-care (01) ==
LOC: HO.10HDL 07:44
PROVIDERS: Visit Provider Urology
DX: R97.20 Elevated prostate specific antigen [PSA] (principal); Z12.5 Encounter for screening for malignant neoplasm of prostate
CPT/HCPCS: 36415; 84153; 84154

== ENCOUNTER → 2025-09-09 13:22 | Outpatient (BNVA) | payer OTHER, SELFPAY | PROVIDERS: PCP Internal Medicine; Visit Provider Emergency Medicine | DX: S63.615A Unspecified sprain of left ring finger, initial encounter (principal); X50.3XXA Overexertion from repetitive movements, initial encounter; Z02.79 Encounter for issue of other medical certificate | CPT/HCPCS: 99213 ==

== ENCOUNTER 2025-09-23 14:52 | Outpatient (AMB) | payer BC, SELFPAY ==
--- NOTE | 2025-09-23 15:10 | A.OFFVIS_ITS ---
Intake Visit Reasons: 6M PSA(set) Intake Note: Reason for Visit: PSA Follow Up Urology Meds: Tadalafil, Sildenafil Blood Thinners: None Labs: Last PSA: 4.68 (03/07/2025) PSA Imaging: None Last PVR: None Ssrs Report Developer Required: No Allergies egg (EGGS) Allergy (Unknown, Verified 09/23/25 15:12) Sneezing HPI Comments Details: Hussain is a very pleasant male. He is a patient of Dr. Fontana. He is seen for the following urologic conditions - elevated PSA - erectile dysfunction Good success daily tadalafil with on demand 100mg sildenafil PSA remains low Repeat PSA in six-month to ensure stability Elevated PSA PSA - 03/29 5.7, 11/30 4.3 14%, 03/30 3.8 16%, 09/29 4.1 15% PFSH Medical History Adenoma of colon Tubular adenoma of colon Elevated PSA Neck pain Back pain Surgical History History of colonoscopy (~01/09/24) History of nasal surgery History of colonoscopy H/O hemorrhoidectomy Family History Mother Cancer Kidney problem History of brain cancer Father Cancer Colon polyps Primary cancer of bone marrow Social History Housing: House Alcohol intake: current Alcohol intake frequency: a few times a week Comment: 4 out of 8 days- 4 drinks Patient Tobacco Use Status: Never used Tobacco Tobacco use type: Cigarette Years Smoked: edible e-Cigarette/Vaping Use: Never Used Second Hand Smoke Exposure: Yes service: No Current occupational status: employed Cognitive needs: No Hearing needs: No Vision needs: Yes Review of Systems Const Denies chills and Denies fever(s) Card Reports no additional complaints and Denies syncope Resp Denies cough GI Denies abdominal pain and Denies heartburn Reports as per HPI and Denies change in libido Neuro Denies syncope Psych Denies change in libido Endo Denies change in libido Physical Exam Const General: cooperative, healthy appearing, comfortable and no acute distress Orientation/consciousness: patient oriented x3 HEENT Face and sinus: Yes normal facial exam Mouth: moist mucous membranes Neck Neck: Yes normal visual inspection, Yes full ROM and Yes trachea midline Chest Chest palpation & inspection: normal inspection of the chest Resp Effort & Inspection: normal respiratory effort, able to speak in complete sentences and no respiratory distress GI Inspection: Yes normal to inspection Back/Spine/Pelvis Cervical Spine: normal cervical lordosis Thoracic/Lumbar Spine: thoracic and lumbar spine normal to inspection Skin General skin exam: no rashes or lesions noted Neuro General: patient oriented x3, gait normal, tone normal and moves all extremities Extrem General: Yes normal to inspection and Yes capillary refill normal Assessment & Plan Assessment & Plan (1) Elevated PSA: Code(s): R97.20 - Elevated prostate specific antigen [PSA] Category: Medical (2) Erectile dysfunction: Code(s): N52.9 - Male erectile dysfunction, unspecified Category: Medical Plan Continue medications Six-month follow-up check PSA Orders: Orders PSA,Total (Free>4and<10) 6 Months R97.20 - Elevated prostate specific antigen [PSA] Medications: Refilled tadalafil [facility] [id number] 5 mg PO DAILY 90 tabs 1RF sexual activity 90 days N52.01 - Erecti le dysfunction due to arterial insufficiency Patient Instructions: This note is constructed using voice recognition software. While every effort has been made to ensure accuracy head up operator errors may have been included. Imaging studies, laboratory and physical exam results were discussed and reviewed in detail. No major barriers to patient understanding were identified. An opportunity to ask questions regarding the treatment plan was provided. All questions were answered. The patient expressed understanding and agreement with the above treatment plan. The patient is aware they should contact our office by phone for worsening of their current condition or the appearance of new urologic symptoms. Compliance is encouraged with any medications and followup testing that is ordered. It is a privilege to participate in the urologic care of your patient. If you have any questions or concerns regarding treatment for the above conditions, or other urologic issues, please do not hesitate to contact me. The office telephone contact is [phone]. Sincerely, Dr Zan Batista MD, R[facility] - Urology Compassionate Specialist Care for the Genitourinary System Coding Level of Care Code Est Pt Level 3 (45586) Add On Problem Visit Only Diagnoses Elevated PSA R97.20 Erectile dysfunction N52.9
== END 2025-09-23 15:47 | disposition home or self-care (01) ==
LOC: HO.HUSH 14:53
PROVIDERS: PCP Internal Medicine; Visit Provider Urology
DX: R97.20 Elevated prostate specific antigen [PSA] (principal); N52.9 Male erectile dysfunction, unspecified
CPT/HCPCS: 99213